=== PATIENT | male | born 1955 | race Caucasian/White ===

== ENCOUNTER 2017-03-05 12:22 | Inpatient (IN) | payer OTHER ==
[~2017-03-05] VITALS: Ht 177.8 cm; Wt 122.5 kg
--- NOTE | 2017-03-05 12:35 | Emergency Room Report ---
History of Present Illness General Chief Complaint: General Complaint Source: Patient (NANDO DOZIER D.O.) Present Illness HPI Patient presents from the paramedics [facility] home With complaints of urinary frequency Patient has multiple medical problems including hepatitis, HIV, reports that he feels that he was going to Cannot further elaborate however complains of increased cough Denies any chest pain denies any back or flank pain patient does report increased urination he also feels that he is incontinent however the incontinence appears to be stress related as he reports that when he coughs he has incontinence Patient was reported to have fever upon arrival here Otherwise denies any neck pain or photophobia Denies any recent travel, (NANDO DOZIER D.O.) Allergies: Coded Allergies: No Known Allergies (Unverified , 03/05/17) Patient History Past Medical History: see triage record Pertinent Family History: none Reviewed Nursing Documentation: PMH: Agreed, PSxH: Agreed (NANDO DOZIER D.O.) Nursing Documentation-PMH Past Medical History: No History, Except For Hx Hypertension: Yes Hx Diabetes: Yes Hx Gastrointestinal Problems: Yes - Hepatitis C History Of Psychiatric Problem: Yes - Bipolar (NANDO DOZIER D.O.) Review of Systems All Other Systems: negative except mentioned in HPI (NANDO DOZIER D.O.) Physical Exam Vital Signs Date Time Temp Pulse Resp B/P Pulse Ox O2 Delivery O2 Flow Rate FiO2 03/05/17 12:19 101.7 104 16 146/79 Sp02 EP Interpretation: reviewed - 99% on room air, normal General Appearance: no apparent distress Head: normocephalic, atraumatic Eyes: bilateral eye EOMI, bilateral eye PERRL ENT: hearing grossly normal, normal pharynx, TMs + canals normal, uvula midline Neck: full range of motion, supple, no meningismus, no bony tend Respiratory: no respiratory distress, no retraction, no accessory muscle use, crackles Cardiovascular #1: normal peripheral pulses, regular rate, rhythm, no edema, no gallop, no JVD, no murmur Gastrointestinal: normal bowel sounds, non tender, soft, no mass, no organomegaly, non-distended, no guarding, no hernia, no pulsatile mass, no rebound Genitourinary: no CVA tenderness Musculoskeletal: normal inspection Neurologic: responsive, prep cook III-XII nml as tested, motor strength/tone normal, sensory intact Psychiatric: mood/affect normal Skin: normal color, no rash, warm/dry, palpation normal Lymphatic: normal inspection, no adenopathy (NANOD DOZIER D.O.) Medical Decision Making Diagnostic Impression: Primary Impression: ACS (acute coronary syndrome) Additional Impressions: Sepsis UTI (urinary tract infection) ER Course Patient is a fairly complex patient with multiple differential to consideration including but not limited to cardiac cardiopulmonary and vascular emergencies Given the patient's febrile presentation sepsis is also entertained Patient's urine sample does show bacteria in patient initiated on antibiotics at this time requires further inpatient care Labs Test 03/05/17 12:40 03/05/17 13:20 White Blood Count 4.2 K/UL (4.8-10.8) Red Blood Count 4.82 M/UL (4.70-6.10) Hemoglobin 14.9 G/DL (14.2-18.0) Hematocrit 43.5 % (42.0-52.0) Mean Corpuscular Volume 90 FL (80-99) Mean Corpuscular Hemoglobin 30.9 PG (27.0-31.0) Mean Corpuscular Hemoglobin Concent 34.3 G/DL (32.0-36.0) Red Cell Distribution Width 12.2 % (11.6-14.8) Platelet Count 88 K/UL (150-450) Mean Platelet Volume 7.7 FL (6.5-10.1) Neutrophils (%) (Auto) % (45.0-75.0) Lymphocytes (%) (Auto) % (20.0-45.0) Monocytes (%) (Auto) % (1.0-10.0) Eosinophils (%) (Auto) % (0.0-3.0) Basophils (%) (Auto) % (0.0-2.0) Prothrombin Time 10.3 SEC (9.30-11.50) Prothromb Time International Ratio 1.0 (0.9-1.1) Activated Partial Thromboplast Time 25 SEC (23-33) Sodium Level 137 mEQ/L (135-145) Potassium Level 4.0 mEQ/L (3.4-4.9) Chloride Level 94 mEQ/L (98-107) Carbon Dioxide Level 26 mEQ/L (20-30) Anion Gap 17 (5-15) Blood Urea Nitrogen 17 mg/dL (7-23) Creatinine 1.0 mg/dL (0.7-1.2) Estimat Glomerular Filtration Rate > 60 mL/min (>60) Glucose Level 250 mg/dL (74-106) Lactic Acid Level 1.10 mmol/L (0.66-2.22) Calcium Level 9.6 mg/dL (8.6-10.2) Phosphorus Level 2.6 mg/dL (2.5-4.8) Magnesium Level 1.4 mg/dL (1.7-2.5) Total Bilirubin 0.5 mg/dL (0.0-1.2) Aspartate Amino Transf (AST/SGOT) 28 U/L (5-40) Alanine Aminotransferase (ALT/SGPT) 37 U/L (3-41) Alkaline Phosphatase 64 U/L (40-129) Total Creatine Kinase 74 U/L (38-174) Creatine Kinase MB < 1.5 ng/mL (< 6.7) Creatine Kinase MB Relative Index Troponin I < 0.30 ng/mL (<=0.30) Pro-B-Type Natriuretic Peptide 222 pg/mL (0-125) Total Protein 7.5 g/dL (6.6-8.7) Albumin 4.3 g/dL (3.5-5.2) Globulin 3.2 g/dL Albumin/Globulin Ratio 1.3 (1.0-2.7) Lipase 27 U/L (< 60) Urine Color Pale yellow Urine Appearance Cloudy Urine pH 5 (4.5-8.0) Urine Specific [place] 1.015 (1.005-1.035) Urine Protein 3+ (NEGATIVE) Urine Glucose (UA) 2+ (NEGATIVE) Urine Ketones Negative (NEGATIVE) Urine Occult Blood 4+ (NEGATIVE) Urine Nitrite Positive (NEGATIVE) Urine Bilirubin Negative (NEGATIVE) Urine Urobilinogen Normal MG/DL (0.0-1.0) Urine Leukocyte Esterase 2+ (NEGATIVE) Urine Opiates Screen Positive (NEGATIVE) Urine Barbiturates Screen Negative (NEGATIVE) Phencyclidine (PCP) Screen Negative (NEGATIVE) Urine Amphetamines Screen Positive (NEGATIVE) Urine Benzodiazepines Screen Negative (NEGATIVE) Urine Cocaine Screen Negative (NEGATIVE) Urine Marijuana (THC) Screen Negative (NEGATIVE) (NANDO DOZIER D.O.) ER Course Received signout from Dr Dozier to followup CT chest on this patient - No dissection. No PE although exam limited for PE ? dilated loop of bowel, however abd soft, NT/ND on serial exam. Passing gas/ stool. No vomiting. Low suspicion for SBO. Likely ileus - Admission office insurance stated [facility] and I was given Dr Cabrera as assigned hospitalist per [employer]. However, Dr Cabrera stated he does not admit [facility]. I went back to admissions office and they stated patient should be admitted to Panel. - I endorsed to Dr Prince and SHIVANI Gonzalez at 319pm for tele admission. (ERICA GARZA M.D.) Rhythm Strip Diag. Results EP Interpretation: yes Rate: 98 Rhythm: NSR, no PVC's, no ectopy (NANDO DOZIER D.O.) EP Interpretation: yes Rate: 82 Rhythm: NSR, no PVC's, no ectopy (ERICA GARZA M.D.) Chest X-Ray Diagnostic Results EP Interpretation: Yes Findings: no consolidation, no effusion, no pneumothorax, other - Questionably widened mediastinum Number of Views: 1 (NANDO DOZIER D.O.) EP Interpretation: Yes Findings: no consolidation, no effusion, no pneumothorax, no acute cardiopulmonary disease, other - ?widened mediastinum Number of Views: 1 (ERICA GARZA M.D.) Last Vital Signs Date Time Temp Pulse Resp B/P Pulse Ox O2 Delivery O2 Flow Rate FiO2 03/05/17 12:19 101.7 104 16 146/79 Status: improved (NANDO DOZIER D.O.) Status: improved (ERICA GARZA M.D.) Disposition: ADMITTED INPATIENT Condition: Serious NANDO DOZIER D.O. Mar 05, 2017 12:35 ERICA GARZA M.D. Mar 05, 2017 15:19
[2017-03-05] MEDS ORDERED: TRAZODONE HCL150 MG ORAL (12:53)
[2017-03-05] MEDS ORDERED: METOPROLOL SUCC25 MG ORAL (12:53)
[2017-03-05] MEDS ORDERED: GABAPENTIN100 MG ORAL (12:53)
[2017-03-05] MEDS ORDERED: OXYTROL1 EACH TD (12:53)
[2017-03-05] MEDS ORDERED: HYDROCHLOROTH12.5 M2 ORAL (12:53)
[2017-03-05 13:02] VITALS: BP 146/79
[2017-03-05] MEDS ORDERED: Acetaminophen 500mg (ES) tab ORAL ONE ×2 (13:12→13:15)
[2017-03-05 13:17] LABS: MEAN CORPUSCULAR HEMOGLOBIN 30.9 PG (27.0-31.0); MEAN CORPUSCULAR HGB CONC 34.3 G/DL (32.0-36.0); MEAN CORPUSCULAR VOLUME 90 FL (80-99); MEAN PLATELET VOLUME 7.7 FL (6.5-10.1); PLATELET COUNT 88 K/UL (150-450); RED BLOOD COUNT 4.82 M/UL (4.70-6.10); RED CELL DISTRIBUTION WIDTH 12.2 % (11.6-14.8); WHITE BLOOD COUNT 4.2 K/UL (4.8-10.8)
[2017-03-05 13:31] LABS: ALANINE AMINOTRANSFERASE 37 U/L (3-41); ALBUMIN/GLOBULIN RATIO 1.3 (1.0-2.7); ANION GAP 17 (5-15); ASPARTATE AMINO TRANSFERASE 28 U/L (5-40); CALCIUM 9.6 mg/dL (8.6-10.2); CARBON DIOXIDE 26 mEQ/L (20-30); CHLORIDE 94 mEQ/L (98-107); GLOMERULAR FILTRATION RATE > 60 mL/min (>60); HEMOLYSIS 4; LIPASE 27 U/L (< 60); MAGNESIUM 1.4 mg/dL (1.7-2.5); PHOSPHORUS 2.6 mg/dL (2.5-4.8); SODIUM 137 mEQ/L (135-145); TOTAL PROTEIN 7.5 g/dL (6.6-8.7); TROPONIN I < 0.30 ng/mL (<=0.30)
[2017-03-05 13:32] LABS: PROTHROMBIN TIME 10.3 SEC (9.30-11.50)
[2017-03-05 13:42] LABS: CKMB < 1.5 ng/mL (< 6.7)
[2017-03-05 13:42] LABS: APPEARANCE,URINE CLOUDY; KETONES,URINE NEGATIVE (NEGATIVE); LEUKOCYTE ESTERASE ,URINE 2+ (NEGATIVE); NITRITE,URINE POSITIVE (NEGATIVE); PH,URINE 5 (4.5-8.0); PROTEIN,URINE 3+ (NEGATIVE); UROBILINOGEN,URINE NORMAL MG/DL (0.0-1.0)
[2017-03-05] MEDS ORDERED: Promethazine/Codeine 5ml UD ORAL ONE (13:45)
[2017-03-05] MEDS ORDERED: cefTRIAXone 1 GM in NS 55 ML IVPB ONE (14:00)
[2017-03-05 14:10] LABS: BAND NEUTROPHILS % (MANUAL) 4 % (0-8); BASOPHILS % (MANUAL) 1 % (0-2); EOSINOPHILS % (MANUAL) 2 % (0-3); LYMPHOCYTES % (MANUAL) 7 % (20-45); NEUTROPHILS % (MANUAL) 80 % (45-75); PLATELET ESTIMATE DECREASED; PLATELET MORPHOLOGY NORMAL; TOTAL CELLS COUNTED 100
[2017-03-05 14:13] LABS: BACTERIA,URINE MANY /HPF; RBC,URINE 40-60 /HPF (0 - 0); SQUAMOUS EPITHELIAL CELL,UR OCCASIONAL /LPF (NONE/OCC); WBC,URINE 15-20 /HPF (0 - 0)
[2017-03-05 15:02] VITALS: BP 143/70
--- NOTE | 2017-03-05 15:16 | Diagnostic Imaging Report ---
Clinical Indication:PAIN Technique: IV administration nonionic contrast. Arterial phase spiral acquisition obtained through the chest, abdomen and pelvis. Multiplanar and 3-D reconstructions were generated. Total dose length product 1502 mGycm. CTDIvol(s) 8, 73, 22 mGy Comparison: None Findings: Chest: Respiratory motion artifact limits evaluation No evidence of thoracic aortic aneurysm or dissection. There is last branching anatomy of the great neck vessels. Exam was not protocoled for exclusion of pulmonary embolus. However, pulmonary arteries are fairly well opacified and there is no gross evidence of central pulmonary embolus. Evaluation of the peripheral vessels is limited by motion artifact Evaluation of the lungs is limited by motion artifact. Atelectatic bands are seen at the lung bases. No definite acute infiltrates, effusions, or congestion. No gross masses or nodules. The heart is mildly enlarged. No pericardial effusion demonstrated. No mediastinal or hilar mass or adenopathy. There is evidence of bilateral gynecomastia. No axillary or chest wall mass or adenopathy. There is a small fat-containing Bochdalek hernia on the left Abdomen pelvis: No evidence of abdominal aortic aneurysm or dissection. Widely patent nonstenotic celiac axis and proximal branches, superior mesenteric artery and proximal branches, bilateral single renal arteries, inferior mesenteric artery, bilateral common and external iliac arteries. The liver, gallbladder, bile ducts, pancreas, adrenals limited evaluation of the chest, due to respiratory motion artifact, left kidney are unremarkable. The spleen is enlarged, measuring 15 cm long axis dimension. The right kidney demonstrates a 1 cm cyst No retroperitoneal or mesenteric mass or adenopathy. No pelvic mass or adenopathy. The uterus is nondistended. The prostate is normal in size for age, contains calcifications. The appendix contains one or more appendicoliths, is otherwise normal. There is distal colonic diverticulosis. There is mild distention of proximal small bowel loops. A tapered transition to normal caliber is seen in the right lower quadrant, but no obstructing lesion is evident. No free or loculated intraperitoneal air or fluid. The bones demonstrate an ununited but not acute fracture of the left fifth rib. There are degenerative changes of the spine. Impression: No evidence of aortic aneurysm or dissection or other vascular pathology Mildly dilated proximal small bowel, with gradual transition in the right lower quadrant. Suspect on the basis of mild ileus, small bowel obstruction not completely excludable No acute process otherwise Cardiomegaly Splenomegaly Diverticulosis. No evidence of diverticulitis Other findings as noted, including ununited but old left fifth rib fracture, degenerative spondylosis, 1 cm right renal cyst, small left fat-containing Bochdalek hernia The CT scanner at [facility] is accredited by the [employer] and the scans are performed using protocols designed to limit radiation exposure to as low as reasonably achievable to attain images of sufficient resolution adequate for diagnostic evaluation.
--- NOTE | 2017-03-05 15:18 | Diagnostic Imaging Report ---
Indication: SOB Technique: One view of the chest Comparison: none Findings: The heart is enlarged. Lungs and pleural spaces are clear. There is an old distracted ununited fracture of the right clavicle. Impression: No acute process Cardiomegaly Old ununited right clavicular fracture
[2017-03-05 16:00] VITALS: BP 133/68
[2017-03-05 19:00] VITALS: BP 201/93
[2017-03-05] MEDS ORDERED: LORazepam Inj 2mg/ml 1ml IV PRN (19:30)
[2017-03-05] MEDS: Heparin 5000 units/ml inj SUBQ SCH (21:00)
--- NOTE | 2017-03-05 21:36 | History and Physical ---
MILADIS ROMERO 03/05/172135: History of Present Illness General Reason for Hospitalization: Urinary Frequency Present Illness HPI Patient is a 61 yr old male resident of a detention home with PMHx of hepatitis, HIV, reports that he feels that he was going to , also complains of urinary frequency and cough. Denies any chest pain denies any back or flank pain patient does report increased urination he also feels that he is incontinent however the incontinence appears to be stress related as he reports that when he coughs he has incontinence. Patient was reported to have fever upon arrival. Otherwise denies any neck pain or photophobia. Denies any recent travel, Allergies: Coded Allergies: No Known Allergies (Unverified , 03/05/17) Medication History Scheduled Gabapentin* (Gabapentin*), Unknown Dose ORAL THREE TIMES A DAY, (Reported) Hydrochlorothiazide* (Hydrochlorothiazide*), Unknown Dose ORAL DAILY, (Reported) Metoprolol Succinate* (Metoprolol Succinate*), Unknown Dose ORAL DAILY, ( Reported) Trazodone* (Trazodone*), 150 MG ORAL BEDTIME, (Reported) Miscellaneous Medications Oxybutynin (Oxytrol), 1 EACH TD, (Reported) Patient History History Provided By: Patient Healthcare decision maker Resuscitation status Advanced Directive on File Past Medical/Surgical History Past Medical/Surgical History: (1) Hepatitis (2) HIV (human immunodeficiency virus infection) (3) Polysubstance abuse Social History Social History: (1) Polysubstance abuse Physical Exam Last 24 Hour Vital Signs Date Time Temp Pulse Resp B/P Pulse Ox O2 Delivery O2 Flow Rate FiO2 03/05/17 19:00 98.1 100 20 201/93 90 Room Air 03/05/17 16:02 100.0 77 12 143/70 92 Room Air 03/05/17 16:00 90 03/05/17 16:00 98.4 92 20 133/68 93 Room Air 03/05/17 15:02 100.0 77 12 143/70 92 Room Air 03/05/17 14:30 100.0 03/05/17 13:02 101.7 16 146/79 03/05/17 12:19 101.7 104 16 146/79 Laboratory Tests Test 03/05/17 12:40 03/05/17 13:20 White Blood Count 4.2 K/UL (4.8-10.8) L Red Blood Count 4.82 M/UL (4.70-6.10) Hemoglobin 14.9 G/DL (14.2-18.0) Hematocrit 43.5 % (42.0-52.0) Mean Corpuscular Volume 90 FL (80-99) Mean Corpuscular Hemoglobin 30.9 PG (27.0-31.0) Mean Corpuscular Hemoglobin Concent 34.3 G/DL (32.0-36.0) Red Cell Distribution Width 12.2 % (11.6-14.8) Platelet Count 88 K/UL (150-450) L Mean Platelet Volume 7.7 FL (6.5-10.1) Neutrophils (%) (Auto) % (45.0-75.0) Lymphocytes (%) (Auto) % (20.0-45.0) Monocytes (%) (Auto) % (1.0-10.0) Eosinophils (%) (Auto) % (0.0-3.0) Basophils (%) (Auto) % (0.0-2.0) Differential Total Cells Counted 100 Neutrophils % (Manual) 80 % (45-75) H Lymphocytes % (Manual) 7 % (20-45) L Monocytes % (Manual) 6 % (1-10) Eosinophils % (Manual) 2 % (0-3) Basophils % (Manual) 1 % (0-2) Band Neutrophils 4 % (0-8) Platelet Estimate Decreased L Platelet Morphology Normal Red Blood Cell Morphology Normal Prothrombin Time 10.3 SEC (9.30-11.50) Prothromb Time International Ratio 1.0 (0.9-1.1) Activated Partial Thromboplast Time 25 SEC (23-33) Sodium Level 137 mEQ/L (135-145) Potassium Level 4.0 mEQ/L (3.4-4.9) Chloride Level 94 mEQ/L (98-107) L Carbon Dioxide Level 26 mEQ/L (20-30) Anion Gap 17 (5-15) H Blood Urea Nitrogen 17 mg/dL (7-23) Creatinine 1.0 mg/dL (0.7-1.2) Estimat Glomerular Filtration Rate > 60 mL/min (>60) Glucose Level 250 mg/dL (74-106) H Lactic Acid Level 1.10 mmol/L (0.66-2.22) Calcium Level 9.6 mg/dL (8.6-10.2) Phosphorus Level 2.6 mg/dL (2.5-4.8) Magnesium Level 1.4 mg/dL (1.7-2.5) L Total Bilirubin 0.5 mg/dL (0.0-1.2) Aspartate Amino Transf (AST/SGOT) 28 U/L (5-40) Alanine Aminotransferase (ALT/SGPT) 37 U/L (3-41) Alkaline Phosphatase 64 U/L (40-129) Total Creatine Kinase 74 U/L (38-174) Creatine Kinase MB < 1.5 ng/mL (< 6.7) Creatine Kinase MB Relative Index Troponin I < 0.30 ng/mL (<=0.30) Pro-B-Type Natriuretic Peptide 222 pg/mL (0-125) H Total Protein 7.5 g/dL (6.6-8.7) Albumin 4.3 g/dL (3.5-5.2) Globulin 3.2 g/dL Albumin/Globulin Ratio 1.3 (1.0-2.7) Lipase 27 U/L (< 60) Urine Color Pale yellow Urine Appearance Cloudy Urine pH 5 (4.5-8.0) Urine Specific [place] 1.015 (1.005-1.035) Urine Protein 3+ (NEGATIVE) H Urine Glucose (UA) 2+ (NEGATIVE) H Urine Ketones Negative (NEGATIVE) Urine Occult Blood 4+ (NEGATIVE) H Urine Nitrite Positive (NEGATIVE) H Urine Bilirubin Negative (NEGATIVE) Urine Urobilinogen Normal MG/DL (0.0-1.0) Urine Leukocyte Esterase 2+ (NEGATIVE) H Urine RBC 40-60 /HPF (0 - 0) H Urine WBC 15-20 /HPF (0 - 0) H Urine Squamous Epithelial Cells Occasional /LPF Urine Bacteria Many /HPF (NONE) H Urine Opiates Screen Positive (NEGATIVE) H Urine Barbiturates Screen Negative (NEGATIVE) Phencyclidine (PCP) Screen Negative (NEGATIVE) Urine Amphetamines Screen Positive (NEGATIVE) H Urine Benzodiazepines Screen Negative (NEGATIVE) Urine Cocaine Screen Negative (NEGATIVE) Urine Marijuana (THC) Screen Negative (NEGATIVE) Height (Feet): 5 Height (Inches): 10.00 Weight (Pounds): 270 Medications Current Medications Medications (Trade) Dose Ordered Sig/Javier Route PRN Reason Start Time Stop Time Status Last Admin Dose Admin Acetaminophen (Tylenol) 650 mg Q4H PRN ORAL fever 03/05/17 19:30 04/04/17 19:29 Ceftriaxone Sodium/Sodium Chloride (Rocephin/Sodium Chloride) 55 ml @ 110 mls/hr Q24H IVPB 03/06/17 14:00 03/13/17 13:59 Dextrose (Dextrose 50%) STAT PRN IV Hypoglycemia 03/05/17 19:30 04/04/17 19:29 Gabapentin (Neurontin) 100 mg THREE TIMES A DAY ORAL 03/06/17 09:00 04/05/17 08:59 Heparin Sodium (Porcine) (Heparin 5000 units/ml) 5,000 units Q12HR SUBQ 03/05/17 21:00 04/04/17 20:59 UNV Hydrochlorothiazide (Hydrodiuril) 12.5 mg DAILY ORAL 03/06/17 09:00 04/05/17 08:59 Ibuprofen (Motrin) 600 mg Q8H PRN ORAL For Pain 03/05/17 19:30 04/04/17 19:29 Insulin Aspart (NovoLOG) BEFORE MEALS AND HS SUBQ 03/05/17 21:00 04/04/17 20:59 Lorazepam 1 mg 1 mg Q4H PRN IV Agitation 03/05/17 19:30 03/12/17 19:29 Metoprolol Succinate (Toprol XL) 25 mg DAILY ORAL 03/06/17 09:00 04/05/17 08:59 Trazodone HCl (Desyrel) 150 mg BEDTIME ORAL 03/05/17 21:00 04/04/17 20:59 Assessment/Plan Problem List: (1) Sepsis ICD Codes: A41.9 - Sepsis, unspecified organism SNOMED: 28229342 (2) UTI (urinary tract infection) ICD Codes: N39.0 - Urinary tract infection, site not specified SNOMED: 29539340 (3) HIV (human immunodeficiency virus infection) ICD Codes: Z21 - Asymptomatic human immunodeficiency virus [HIV] infection status SNOMED: 55559508 (4) Hepatitis ICD Codes: K75.9 - Inflammatory liver disease, unspecified SNOMED: 906977962 (5) Polysubstance abuse ICD Codes: F19.10 - Other psychoactive substance abuse, uncomplicated SNOMED: 128100422 (6) Thrombocytopenia ICD Codes: D69.6 - Thrombocytopenia, unspecified SNOMED: 655545669 Assessment/Plan Monitor neuro status ID consult Monitor radha Rai Mag Monitor counts Aggie Elias N.P. 03/06/17 1443: History of Present Illness General Reason for Hospitalization: Urinary Frequency Present Illness HPI 61 yr old male with a PMHx of polysubstance abuse, schizophrenia, bipolar, sees a psychiatrist monthly, presented to the ED with complaints of urinary frequency , worsening cough and feels that he was going to . Denies any chest pain denies any back or flank pain patient does report increased urination he also feels that he is incontinent however the incontinence appears to be stress related as he reports that when he coughs he has incontinence. Patient was reported to have fever upon arrival to the ED, otherwise denies any neck pain or photophobia Allergies: Coded Allergies: No Known Allergies (Unverified , 03/05/17) Medication History Scheduled Gabapentin* (Gabapentin*), Unknown Dose ORAL THREE TIMES A DAY, (Reported) Hydrochlorothiazide* (Hydrochlorothiazide*), Unknown Dose ORAL DAILY, (Reported) Metoprolol Succinate* (Metoprolol Succinate*), Unknown Dose ORAL DAILY, ( Reported) Trazodone* (Trazodone*), 150 MG ORAL BEDTIME, (Reported) Miscellaneous Medications Oxybutynin (Oxytrol), 1 EACH TD, (Reported) Past Medical/Surgical History Past Medical/Surgical History: (1) Polysubstance abuse (2) Psychiatric disorder (3) Morbid obesity (4) ACS (acute coronary syndrome) (5) Hepatitis Social History Social History: (1) History of polydrug abuse Review of Systems Constitutional: Reports: fever, weakness Eye: Denies: acuity changes, blurred vision, discharge, double vision, eye pain , no symptoms, nose congestion, nose pain, other, see HPI, tearing ENT: Denies: ear discharge, ear pain, hearing loss, mouth pain, nasal discharge , no symptoms, nose congestion, nose pain, other, see HPI, throat pain, throat swelling Respiratory: Reports: cough Cardiovascular: Denies: PND, chest pain, edema, no symptoms, other, palpitations, see HPI, syncope Gastrointestinal: Denies: abdominal pain, constipation, diarrhea, hematemesis, melena, nausea, no symptoms, other, see HPI, vomiting Genitourinary: Reports: frequency Musculoskeletal: Reports: muscle pain Skin: Denies: change in color, change in hair/nails, dryness, lesions, no symptoms, other, rash, see HPI Psychiatric: Denies: HI, SI, anxiety, depressed feelings, emotional problems, hallucinations, no symptoms, other, prior hx, see HPI Neurological: Denies: dizziness, focal weakness, headache, no symptoms, numbness, other, paresthesia, see HPI, seizure, syncope, tingling, tremors Endocrine: Denies: excessive sweating, flushing, increased thirst, increased urine, intolerance to temperature, no symptoms, other, see HPI, unexplained weight loss Hematologic/Lymphatic: Denies: anemia, blood clots, diathesis, easy bleeding, easy bruising, no symptoms, other, see HPI, swollen glands Physical Exam General Appearance: alert Lines, tubes and drains: peripheral HEENT: normocephalic, atraumatic Neck: normal alignment, supple, normal inspection Respiratory/Chest: normal breath sounds, no respiratory distress Cardiovascular/Chest: normal rate, regular rhythm, no JVD Abdomen: distended, other - obese Extremities: non-tender, normal inspection Skin Exam: normal pigmentation, warm/dry Neurologic: alert, oriented x 3, responsive, normal mood/affect Objective Narrative Procedure: XRAY Chest 1v Indication: SOB Technique: One view of the chest Comparison: none Findings: The heart is enlarged. Lungs and pleural spaces are clear. There is an old distracted ununited fracture of the right clavicle. Impression: No acute process Cardiomegaly Old ununited right clavicular fracture CT abd/pelvis Impression: No evidence of aortic aneurysm or dissection or other vascular pathology Mildly dilated proximal small bowel, with gradual transition in the right lower quadrant. Suspect on the basis of mild ileus, small bowel obstruction not completely excludable No acute process otherwise Cardiomegaly Splenomegaly Diverticulosis. No evidence of diverticulitis Other findings as noted, including ununited but old left fifth rib fracture, degenerative spondylosis, 1 cm right renal cyst, small left fat-containing Bochdalek hernia Assessment/Plan Problem List: (1) Hepatitis ICD Codes: K75.9 - Inflammatory liver disease, unspecified SNOMED: 460806954 (2) HIV (human immunodeficiency virus infection) ICD Codes: Z21 - Asymptomatic human immunodeficiency virus [HIV] infection status SNOMED: 56107456 (3) Thrombocytopenia ICD Codes: D69.6 - Thrombocytopenia, unspecified SNOMED: 484200944 (4) Sepsis ICD Codes: A41.9 - Sepsis, unspecified organism SNOMED: 97999870 (5) UTI (urinary tract infection) ICD Codes: N39.0 - Urinary tract infection, site not specified SNOMED: 13838273 (6) History of polydrug abuse ICD Codes: Z87.898 - Personal history of other specified conditions SNOMED: 320573579 (7) Fever ICD Codes: R50.9 - Fever, unspecified SNOMED: 758349702 (8) Psychiatric disorder ICD Codes: F99 - Mental disorder, not otherwise specified SNOMED: 36821648, 536034317 Status: MILADIS Leija Mar 05, 2017 21:36 Aggie Elias N.P. Mar 06, 2017 14:43
[2017-03-05] MEDS: TraZODone 50mg tab ORAL SCH (22:16)
[2017-03-05] MEDS: NovoLOG Insulin Flexpen SUBQ SCH (22:18)
[2017-03-06] VITALS: BP 153/79
[2017-03-06 04:00] VITALS: BP 134/81
[2017-03-06] MEDS: NovoLOG Insulin Flexpen SUBQ SCH ×4 (06:43→21:11)
[2017-03-06 07:36] LABS: MEAN CORPUSCULAR HEMOGLOBIN 30.9 PG (27.0-31.0); MEAN CORPUSCULAR HGB CONC 33.9 G/DL (32.0-36.0); MEAN CORPUSCULAR VOLUME 91 FL (80-99); MEAN PLATELET VOLUME 7.4 FL (6.5-10.1); PLATELET COUNT 85 K/UL (150-450); RED BLOOD COUNT 4.48 M/UL (4.70-6.10); RED CELL DISTRIBUTION WIDTH 12.1 % (11.6-14.8); WHITE BLOOD COUNT 4.2 K/UL (4.8-10.8)
[2017-03-06 07:54] VITALS: BP 135/80
[2017-03-06 08:06] LABS: ANION GAP 14 (5-15); CALCIUM 8.9 mg/dL (8.6-10.2); CARBON DIOXIDE 26 mEQ/L (20-30); CHLORIDE 94 mEQ/L (98-107); GLOMERULAR FILTRATION RATE > 60 mL/min (>60); HEMOLYSIS 7; POTASSIUM 3.8 mEQ/L (3.4-4.9); SODIUM 134 mEQ/L (135-145)
[2017-03-06] MEDS: Heparin 5000 units/ml inj SUBQ SCH (09:00)
[2017-03-06 09:31] LABS: BAND NEUTROPHILS % (MANUAL) 0 % (0-8); BASOPHILS % (MANUAL) 0 % (0-2); EOSINOPHILS % (MANUAL) 0 % (0-3); LYMPHOCYTES % (MANUAL) 17 % (20-45); NEUTROPHILS % (MANUAL) 71 % (45-75); PLATELET ESTIMATE DECREASED; PLATELET MORPHOLOGY NORMAL; TOTAL CELLS COUNTED 100
[2017-03-06 12:05] VITALS: BP 111/50
[2017-03-06] MEDS: cefTRIAXone 1 GM in NS 55 ML IVPB SCH ×2 (12:57→13:07)
--- NOTE | 2017-03-06 14:33 | General Progress Note ---
Assessment/Plan Problem List: (1) Hepatitis ICD Codes: K75.9 - Inflammatory liver disease, unspecified SNOMED: 895022125 (2) HIV (human immunodeficiency virus infection) ICD Codes: Z21 - Asymptomatic human immunodeficiency virus [HIV] infection status SNOMED: 78516480 (3) Thrombocytopenia ICD Codes: D69.6 - Thrombocytopenia, unspecified SNOMED: 105213038 (4) UTI (urinary tract infection) ICD Codes: N39.0 - Urinary tract infection, site not specified SNOMED: 97050369 (5) Sepsis ICD Codes: A41.9 - Sepsis, unspecified organism SNOMED: 96713295 (6) ACS (acute coronary syndrome) ICD Codes: I24.9 - Acute ischemic heart disease, unspecified SNOMED: 922523434 (7) Psychiatric disorder ICD Codes: F99 - Mental disorder, not otherwise specified SNOMED: 98147374, 668670232 (8) Morbid obesity ICD Codes: E66.01 - Morbid (severe) obesity due to excess calories SNOMED: 295526847, 78358306496801 (9) Fever ICD Codes: R50.9 - Fever, unspecified SNOMED: 020642956 Assessment/Plan Monitor counts Continue abx ID consult - Dr Jackson Hematology consult - Dr Wells Monitor lytes - correct as needed Obtain list of psyche meds Monitor I&O Monitor temp Subjective Constitutional: Denies: chills, diaphoresis, fever, malaise, no symptoms, other , weakness HEENT: Denies: blurred vision, double vision, ear discharge, ear pain, eye pain , mouth pain, mouth swelling, no symptoms, nose congestion, nose pain, other, tearing, throat pain, throat swelling Cardiovascular: Denies: chest pain, edema, irregular heart rate, lightheadedness, no symptoms, other, palpitations, syncope Respiratory: Denies: SOB at rest, SOB with excertion, cough, no symptoms, orthopnea, other, shortness of breath, sputum, stridor, wheezing Gastrointestinal/Abdominal: Denies: abdomen distended, abdominal pain, black stools, blood in stool, constipated, diarrhea, difficulty swallowing, nausea, no symptoms, other, poor appetite, poor fluid intake, rectal bleeding, tarry stools, vomiting Genitourinary: Denies: burning, discharge, flank pain, frequency, hematuria, incontinence, no symptoms, other, pain, urgency Neurologic/Psychiatric: Denies: anxiety, depressed, emotional problems, headache, no symptoms, numbness, other, paresthesia, pre-existing deficit, seizure, tingling, tremors, weakness Endocrine: Denies: excessive sweating, flushing, increased hunger, increased thirst, increased urine, intolerance to cold, intolerance to heat, no symptoms, other, unexplained weight gain, unexplained weight loss Hematologic/Lymphatic: Denies: anemia, easy bleeding, easy bruising, no symptoms, other Allergies: Coded Allergies: No Known Allergies (Unverified , 03/05/17) Subjective In bed, in no apparent distress, denies discomfort Objective Last 24 Hour Vital Signs Date Time Temp Pulse Resp B/P Pulse Ox O2 Delivery O2 Flow Rate FiO2 03/06/17 12:05 98.4 75 18 111/50 95 Room Air 03/06/17 08:25 90 135/80 03/06/17 07:54 99.7 90 20 135/80 94 Room Air 03/06/17 04:00 98.0 82 18 134/81 95 Room Air 03/06/17 04:00 89 03/06/17 00:00 98.4 91 24 153/79 94 Room Air 03/06/17 00:00 93 03/05/17 22:16 163/96 03/05/17 20:00 97 03/05/17 19:00 98.1 100 20 201/93 90 Room Air 03/05/17 16:02 100.0 77 12 143/70 92 Room Air 03/05/17 16:00 90 03/05/17 16:00 98.4 92 20 133/68 93 Room Air 03/05/17 15:02 100.0 77 12 143/70 92 Room Air 03/05/17 14:30 100.0 Intake and Output 03/05/17 03/06/17 19:00 07:00 Intake Total 200 ml Balance 200 ml IV Total 200 ml # Voids 1 6 Laboratory Tests 03/06/17 05:50: White Blood Count 4.2L, Red Blood Count 4.48L, Hemoglobin 13.8L, Hematocrit 40.8L, Mean Corpuscular Volume 91, Mean Corpuscular Hemoglobin 30.9, Mean Corpuscular Hemoglobin Concent 33.9, Red Cell Distribution Width 12.1, Platelet Count 85L, Mean Platelet Volume 7.4, Neutrophils (%) (Auto) , Lymphocytes (%) ( Auto) , Monocytes (%) (Auto) , Eosinophils (%) (Auto) , Basophils (%) (Auto) , Differential Total Cells Counted 100, Neutrophils % (Manual) 71, Lymphocytes % ( Manual) 17L, Monocytes % (Manual) 12H, Eosinophils % (Manual) 0, Basophils % ( Manual) 0, Band Neutrophils 0, Platelet Estimate DecreasedL, Platelet Morphology Normal, Red Blood Cell Morphology Normal, Sodium Level 134L, Potassium Level 3.8, Chloride Level 94L, Carbon Dioxide Level 26, Anion Gap 14, Blood Urea Nitrogen 18, Creatinine 1.0, Estimat Glomerular Filtration Rate > 60 , Glucose Level 245H, Calcium Level 8.9 Height (Feet): 5 Height (Inches): 10.00 Weight (Pounds): 270 General Appearance: no apparent distress, alert EENT: normal ENT inspection Neck: non-tender, normal alignment, supple, normal inspection Cardiovascular: normal rate, regular rhythm Respiratory/Chest: normal breath sounds, no respiratory distress Abdomen: soft, no organomegaly, no mass Pelvis: normal external exam Extremities: normal range of motion, non-tender, normal inspection, no calf tenderness Neurologic: alert, oriented x 3, responsive, normal mood/affect Skin: normal pigmentation, warm/dry Aggie Elias N.P. Mar 06, 2017 14:33
--- NOTE | 2017-03-06 14:40 | Infectious Diseases Prog Note ---
Assessment/Plan Problems: (1) Sepsis Assessment & Plan: await blood culture, and urine culture continue ceftriaxone (2) UTI (urinary tract infection) Assessment & Plan: due to gram negative rods, on ceftriaxon , await identification and sensitivity (3) Hepatitis Assessment & Plan: will screen for hepatitis , and confirm , recommend for treatment as an outpatient (4) Polysubstance abuse Assessment & Plan: recommend counseling and rehabilitation Subjective Allergies: Coded Allergies: No Known Allergies (Unverified , 03/05/17) Objective Vital Signs Last 24 Hour Vital Signs Date Time Temp Pulse Resp B/P Pulse Ox O2 Delivery O2 Flow Rate FiO2 03/06/17 12:05 98.4 75 18 111/50 95 Room Air 03/06/17 12:00 85 03/06/17 08:25 90 135/80 03/06/17 08:00 86 03/06/17 07:54 99.7 90 20 135/80 94 Room Air 03/06/17 04:00 98.0 82 18 134/81 95 Room Air 03/06/17 04:00 89 03/06/17 00:00 98.4 91 24 153/79 94 Room Air 03/06/17 00:00 93 03/05/17 22:16 163/96 03/05/17 20:00 97 03/05/17 19:00 98.1 100 20 201/93 90 Room Air 03/05/17 16:02 100.0 77 12 143/70 92 Room Air 03/05/17 16:00 90 03/05/17 16:00 98.4 92 20 133/68 93 Room Air 03/05/17 15:02 100.0 77 12 143/70 92 Room Air Height (Feet): 5 Height (Inches): 10.00 Weight (Pounds): 270 Microbiology Date/Time Source Procedure Growth Status 03/05/17 13:20 Urine,Clean Catch Urine Culture - Preliminary Gram Negative Ovidio Resulted Laboratory Tests Test 03/06/17 05:50 White Blood Count 4.2 K/UL (4.8-10.8) L Red Blood Count 4.48 M/UL (4.70-6.10) L Hemoglobin 13.8 G/DL (14.2-18.0) L Hematocrit 40.8 % (42.0-52.0) L Mean Corpuscular Volume 91 FL (80-99) Mean Corpuscular Hemoglobin 30.9 PG (27.0-31.0) Mean Corpuscular Hemoglobin Concent 33.9 G/DL (32.0-36.0) Red Cell Distribution Width 12.1 % (11.6-14.8) Platelet Count 85 K/UL (150-450) L Mean Platelet Volume 7.4 FL (6.5-10.1) Neutrophils (%) (Auto) % (45.0-75.0) Lymphocytes (%) (Auto) % (20.0-45.0) Monocytes (%) (Auto) % (1.0-10.0) Eosinophils (%) (Auto) % (0.0-3.0) Basophils (%) (Auto) % (0.0-2.0) Differential Total Cells Counted 100 Neutrophils % (Manual) 71 % (45-75) Lymphocytes % (Manual) 17 % (20-45) L Monocytes % (Manual) 12 % (1-10) H Eosinophils % (Manual) 0 % (0-3) Basophils % (Manual) 0 % (0-2) Band Neutrophils 0 % (0-8) Platelet Estimate Decreased L Platelet Morphology Normal Red Blood Cell Morphology Normal Sodium Level 134 mEQ/L (135-145) L Potassium Level 3.8 mEQ/L (3.4-4.9) Chloride Level 94 mEQ/L (98-107) L Carbon Dioxide Level 26 mEQ/L (20-30) Anion Gap 14 (5-15) Blood Urea Nitrogen 18 mg/dL (7-23) Creatinine 1.0 mg/dL (0.7-1.2) Estimat Glomerular Filtration Rate > 60 mL/min (>60) Glucose Level 245 mg/dL (74-106) H Calcium Level 8.9 mg/dL (8.6-10.2) Current Medications Medications (Trade) Dose Ordered Sig/Javier Route PRN Reason Start Time Stop Time Status Last Admin Dose Admin Acetaminophen (Tylenol) 650 mg Q4H PRN ORAL fever 03/05/17 19:30 04/04/17 19:29 Ceftriaxone Sodium/Sodium Chloride (Rocephin/Sodium Chloride) 55 ml @ 110 mls/hr Q24H IVPB 03/06/17 14:00 03/13/17 13:59 03/06/17 13:07 Clonidine HCl (Catapres) 0.1 mg Q6H PRN ORAL SBP > 160 03/05/17 21:45 04/04/17 21:44 03/05/17 22:16 Dextrose (Dextrose 50%) STAT PRN IV Hypoglycemia 03/05/17 19:30 04/04/17 19:29 Gabapentin (Neurontin) 100 mg THREE TIMES A DAY ORAL 03/06/17 09:00 04/05/17 08:59 03/06/17 12:52 Hydrochlorothiazide (Hydrodiuril) 12.5 mg DAILY ORAL 03/06/17 09:00 04/05/17 08:59 03/06/17 08:24 Ibuprofen (Motrin) 600 mg Q8H PRN ORAL For Pain 03/05/17 19:30 04/04/17 19:29 Insulin Aspart (NovoLOG) BEFORE MEALS AND HS SUBQ 03/05/17 21:00 04/04/17 20:59 03/06/17 12:53 Lorazepam 1 mg 1 mg Q4H PRN IV Agitation 03/05/17 19:30 03/12/17 19:29 Metoprolol Succinate (Toprol XL) 50 mg DAILY ORAL 03/06/17 09:00 04/05/17 08:59 03/06/17 08:25 Promethazine HCl/ Codeine (Phenergan with Codeine) 5 ml Q4H PRN ORAL For Cough 03/05/17 21:45 04/04/17 21:44 Trazodone HCl (Desyrel) 150 mg BEDTIME ORAL 03/05/17 21:00 04/04/17 20:59 03/05/17 22:16 Ernie Jackson M.D. Mar 06, 2017 14:40
[2017-03-06 16:00] VITALS: BP 128/73
[2017-03-06] MEDS ORDERED: Tubing IV Secondary IV ONE (16:12)
[2017-03-06] MEDS ORDERED: NS 275ml ONE (16:12)
[2017-03-06 20:00] VITALS: BP 128/72
[2017-03-06] MEDS: TraZODone 50mg tab ORAL SCH (21:07)
--- NOTE | 2017-03-06 21:38 | Consultation ---
DATE OF CONSULTATION: INFECTIOUS DISEASE CONSULTATION CONSULTING PHYSICIAN: Ernie Jackson M.D. REQUESTING PHYSICIAN: Giovanny Prince M.D. REASON FOR CONSULTATION: Urinary tract infection, recommendation for antibiotics therapy. HISTORY OF PRESENT ILLNESS: The patient is a 61-year-old male who was transferred from the [facility] due to urine retention and increased frequency. The patient had tight foreskin on his penis and he had difficulty urinating normally. He was evaluated a week ago at [facility] when he had urinary tract infection due to his skin problem and he was not accepted for surgical procedure due to insurance issue and he was discharged with follow up with his primary care physician. The patient had fever before he presented to the emergency room and he was febrile in the ED with temperature of 101.7. He was unable to urinate. The patient was sent to [facility] emergency room for further evaluation and management. He denied any suprapubic pain. No fever or chills, and no nausea or vomiting. No hematuria. No cough or shortness of breath. Urinalysis in the emergency room showed positive nitrites and leukocyte esterase suggestive of infection, so he was started on ceftriaxone and I was consulted by the primary provider for antibiotics recommendation. REVIEW OF SYSTEMS: A 12-point of system reviewed were all negative apart from the one I mentioned above in my History and Physical. PAST MEDICAL HISTORY: Significant for hypertension, diabetes, hepatitis C, and bipolar disorder. PAST SURGICAL HISTORY: Negative. FAMILY HISTORY: Negative for recurrent infection or immunocompromised condition. SOCIAL HISTORY: He lives in [facility]. Used drugs mainly methamphetamine. Unemployed. ALLERGIES: He has no known drug allergy. MEDICATIONS: He is on ceftriaxone. For the rest of his medications, please refer to MAR. PHYSICAL EXAMINATION: VITAL SIGNS: Temperature 98.4 degrees, pulse 75, respirations 18, blood pressure 111/50, and saturation 95% on room air. GENERAL: A middle-aged male, obese, lying in bed, awake, alert, not in distress. HEENT: Normocephalic and atraumatic. Pupils are reactive to light equally. Moist oral mucosa. No exudate. NECK: Supple. No lymphadenopathy. CARDIOVASCULAR: Regular rate and rhythm. No murmur or gallop. LUNGS: Clear bilaterally. No wheezing or rhonchi. Normal breathing effort. ABDOMEN: Soft, nontender, and nondistended. Positive bowel sounds. No hepatosplenomegaly. No ascites. EXTREMITIES: No edema or cyanosis. LABORATORY AND DIAGNOSTIC DATA: Labs showed a white count of 4.2, hemoglobin 13.8, and platelet count of 85,000. BUN of 18 and creatinine of 1. AST of 28, ALT of 37. Urinalysis showed positive nitrites, +2 leukocyte esterase, WBC 15 to 20, and many urine bacteria. Microbiology: Urine culture is growing Gram-negative rods. 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 CT angio, abdomen and chest and pelvis showed no evidence of aortic aneurysm or dissection or other vascular pathology, mildly dilated proximal small bowel with gradual transition in the right lower quadrant, small bowel obstruction not excluded, no acute process, otherwise cardiomegaly, splenomegaly, diverticulosis, no evidence of diverticulitis. ASSESSMENT AND PLAN: 1. Sepsis. Await blood culture and urine culture. Continue ceftriaxone, empiric treatment for now, suspect due to urinary tract infection. 2. Urinary tract infection with Gram-negative rods on ceftriaxone already. Await identification and sensitivity. 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 3. Hepatitis, chronic hepatitis C. We will screen for hepatitis and confirm. Recommend treatment as an outpatient with Gastroenterology. 4. Polysubstance abuse. Recommend counseling and rehabilitation. Ernie Jackson M.D. DR: MARY JOB#: [id number] CC:
[2017-03-06] MEDS: Promethazine/Codeine 5ml UD ORAL PRN (22:38)
[2017-03-07] VITALS: BP 130/74
[2017-03-07 04:00] VITALS: BP 118/69
[2017-03-07] MEDS: NovoLOG Insulin Flexpen SUBQ SCH ×4 (06:27→20:53)
[2017-03-07 07:36] LABS: ANION GAP 16 (5-15); CALCIUM 8.7 mg/dL (8.6-10.2); CARBON DIOXIDE 24 mEQ/L (20-30); CHLORIDE 94 mEQ/L (98-107); GLOMERULAR FILTRATION RATE > 60 mL/min (>60); HEMOLYSIS 10; POTASSIUM 3.8 mEQ/L (3.4-4.9); SODIUM 134 mEQ/L (135-145)
[2017-03-07 07:37] LABS: MEAN CORPUSCULAR HEMOGLOBIN 31.3 PG (27.0-31.0); MEAN CORPUSCULAR HGB CONC 34.4 G/DL (32.0-36.0); MEAN CORPUSCULAR VOLUME 91 FL (80-99); MEAN PLATELET VOLUME 8.4 FL (6.5-10.1); PLATELET COUNT 77 K/UL (150-450); RED BLOOD COUNT 4.69 M/UL (4.70-6.10); RED CELL DISTRIBUTION WIDTH 12.3 % (11.6-14.8); WHITE BLOOD COUNT 2.5 K/UL (4.8-10.8)
[2017-03-07 08:26] VITALS: BP 124/65
[2017-03-07 10:29] LABS: BAND NEUTROPHILS % (MANUAL) 0 % (0-8); BASOPHILS % (MANUAL) 0 % (0-2); EOSINOPHILS % (MANUAL) 1 % (0-3); LYMPHOCYTES % (MANUAL) 46 % (20-45); NEUTROPHILS % (MANUAL) 42 % (45-75); PLATELET ESTIMATE DECREASED; PLATELET MORPHOLOGY NORMAL; TOTAL CELLS COUNTED 100
[2017-03-07] MEDS: Promethazine/Codeine 5ml UD ORAL PRN (11:30)
[2017-03-07 11:50] VITALS: BP 130/75
[2017-03-07] MEDS: cefTRIAXone 1 GM in NS 55 ML IVPB SCH (14:26)
--- NOTE | 2017-03-07 15:46 | General Progress Note ---
Assessment/Plan Assessment/Plan ASSESSMENT: #. Leukopenia is likely related to patient's splenomegaly as well as history of hepatitis, continue to monitor. Also has sepsis at the moment #. Thrombocytopenia - related to his hep C as well as liver cirrhosis, will followup with Gi team/service #. Splenomegaly due to history of chronic hepatitis C, needs followup and rx #. Sepsis. on abx for suspected uti, being followed by ID team #. Urinary tract infection with Gram-negative rods on ceftriaxone #. Hepatitis, chronic hepatitis C. We will screen for hepatitis andconfirm. GI followup #. Polysubstance abuse. Recommend counseling and rehabilitation. RECS: - Monitor counts - Hepatitis panel is pending to confirm dx - Medications have been reviewed - Plt count has been >50k consistently - Consider transfusion only if hgb <7, plt <20k - Abx as per ID service, conside NEUPOGEN if ANC lower - Peripheral smear ordered and will be reviewed - Appreciate consultation!! Subjective Constitutional: Reports: no symptoms HEENT: Reports: no symptoms Cardiovascular: Reports: no symptoms Respiratory: Reports: no symptoms Gastrointestinal/Abdominal: Reports: poor appetite Genitourinary: Reports: no symptoms Neurologic/Psychiatric: Reports: no symptoms Endocrine: Reports: no symptoms Hematologic/Lymphatic: Reports: anemia Allergies: Coded Allergies: No Known Allergies (Unverified , 03/05/17) Subjective stable, no events overnight, h/h stable, plt count 70-100k Objective Last 24 Hour Vital Signs Date Time Temp Pulse Resp B/P Pulse Ox O2 Delivery O2 Flow Rate FiO2 03/07/17 12:00 70 03/07/17 11:50 97.9 68 18 130/75 95 Room Air 03/07/17 09:16 67 124/65 03/07/17 08:26 97.9 67 18 124/65 95 Room Air 03/07/17 08:00 67 03/07/17 04:00 67 03/07/17 04:00 98.1 69 18 118/69 95 Room Air 03/07/17 01:34 96.8 03/07/17 00:00 70 03/07/17 00:00 101.7 69 18 130/74 95 Room Air 03/06/17 20:00 98.0 74 20 128/72 96 Room Air 03/06/17 20:00 76 03/06/17 16:00 73 03/06/17 16:00 97.7 71 20 128/73 96 Room Air Intake and Output 03/06/17 03/07/17 19:00 07:00 Intake Total 240 ml 480 ml Balance 240 ml 480 ml Intake Oral 240 ml 480 ml # Voids 3 4 # Bowel Movements 1 Laboratory Tests 03/06/17 17:00: Hepatitis A Antibody Total [Pending], Hepatitis B Surface Antigen [Pending], Hepatitis B Surface Antibody [Pending], Hepatitis B Core IgM Antibody [Pending] , Hepatitis C Antibody [Pending] 03/07/17 05:15: White Blood Count 2.5L, Red Blood Count 4.69L, Hemoglobin 14.7, Hematocrit 42.7 , Mean Corpuscular Volume 91, Mean Corpuscular Hemoglobin 31.3H, Mean Corpuscular Hemoglobin Concent 34.4, Red Cell Distribution Width 12.3, Platelet Count 77L, Mean Platelet Volume 8.4, Neutrophils (%) (Auto) , Lymphocytes (%) ( Auto) , Monocytes (%) (Auto) , Eosinophils (%) (Auto) , Basophils (%) (Auto) , Differential Total Cells Counted 100, Neutrophils % (Manual) 42L, Lymphocytes % (Manual) 46H, Monocytes % (Manual) 11H, Eosinophils % (Manual) 1, Basophils % ( Manual) 0, Band Neutrophils 0, Platelet Estimate DecreasedL, Platelet Morphology Normal, Red Blood Cell Morphology Normal, Sodium Level 134L, Potassium Level 3.8, Chloride Level 94L, Carbon Dioxide Level 24, Anion Gap 16H , Blood Urea Nitrogen 21, Creatinine 1.0, Estimat Glomerular Filtration Rate > 60, Glucose Level 191H, Calcium Level 8.7 Height (Feet): 5 Height (Inches): 10.00 Weight (Pounds): 270 General Appearance: no apparent distress EENT: TMs normal Neck: supple Cardiovascular: regular rhythm Respiratory/Chest: normal breath sounds Abdomen: soft Extremities: non-tender Edema: 1+ Leg (L), 1+ Leg (R) Edema: mild edema Neurologic: alert Skin: warm/dry Jose Wells Mar 07, 2017 15:46
[2017-03-07 16:07] VITALS: BP 109/56
[2017-03-07] MEDS: Ertapenem 1 GM in NS 55 ML IVPB SCH (16:38)
--- NOTE | 2017-03-07 19:35 | General Progress Note ---
Assessment/Plan Problem List: (1) Hepatitis ICD Codes: K75.9 - Inflammatory liver disease, unspecified SNOMED: 928845623 (2) Thrombocytopenia ICD Codes: D69.6 - Thrombocytopenia, unspecified SNOMED: 011688786 (3) Sepsis ICD Codes: A41.9 - Sepsis, unspecified organism SNOMED: 14783540 (4) UTI (urinary tract infection) ICD Codes: N39.0 - Urinary tract infection, site not specified SNOMED: 35476191 (5) History of polydrug abuse ICD Codes: Z87.898 - Personal history of other specified conditions SNOMED: 562520928 (6) Fever ICD Codes: R50.9 - Fever, unspecified SNOMED: 703289443 (7) Psychiatric disorder ICD Codes: F99 - Mental disorder, not otherwise specified SNOMED: 43969414, 541395336 Status: doing well, stable Assessment/Plan Monitor counts Abx perID Hematology consult - Dr Wells Monitor lytes - correct as needed Obtain list of psyche meds Monitor I&O Monitor temp Subjective Constitutional: Denies: chills, diaphoresis, fever, malaise, no symptoms, other , weakness HEENT: Denies: blurred vision, double vision, ear discharge, ear pain, eye pain , mouth pain, mouth swelling, no symptoms, nose congestion, nose pain, other, tearing, throat pain, throat swelling Cardiovascular: Denies: chest pain, edema, irregular heart rate, lightheadedness, no symptoms, other, palpitations, syncope Respiratory: Denies: SOB at rest, SOB with excertion, cough, no symptoms, orthopnea, other, shortness of breath, sputum, stridor, wheezing Gastrointestinal/Abdominal: Denies: abdomen distended, abdominal pain, black stools, blood in stool, constipated, diarrhea, difficulty swallowing, nausea, no symptoms, other, poor appetite, poor fluid intake, rectal bleeding, tarry stools, vomiting Genitourinary: Denies: burning, discharge, flank pain, frequency, hematuria, incontinence, no symptoms, other, pain, urgency Neurologic/Psychiatric: Denies: anxiety, depressed, emotional problems, headache, no symptoms, numbness, other, paresthesia, pre-existing deficit, seizure, tingling, tremors, weakness Endocrine: Denies: excessive sweating, flushing, increased hunger, increased thirst, increased urine, intolerance to cold, intolerance to heat, no symptoms, other, unexplained weight gain, unexplained weight loss Hematologic/Lymphatic: Denies: anemia, easy bleeding, easy bruising, no symptoms, other Allergies: Coded Allergies: No Known Allergies (Unverified , 03/05/17) Subjective In bed, in no apparent distress, denies discomfort Objective Last 24 Hour Vital Signs Date Time Temp Pulse Resp B/P Pulse Ox O2 Delivery O2 Flow Rate FiO2 03/07/17 16:07 97.7 67 18 109/56 95 Room Air 03/07/17 16:00 76 03/07/17 12:00 70 03/07/17 11:50 97.9 68 18 130/75 95 Room Air 03/07/17 09:16 67 124/65 03/07/17 08:26 97.9 67 18 124/65 95 Room Air 03/07/17 08:00 67 03/07/17 04:00 67 03/07/17 04:00 98.1 69 18 118/69 95 Room Air 03/07/17 01:34 96.8 03/07/17 00:00 70 03/07/17 00:00 101.7 69 18 130/74 95 Room Air 03/06/17 20:00 98.0 74 20 128/72 96 Room Air 03/06/17 20:00 76 Intake and Output 03/06/17 03/07/17 19:00 07:00 Intake Total 240 ml 480 ml Balance 240 ml 480 ml Intake Oral 240 ml 480 ml # Voids 3 4 # Bowel Movements 1 Laboratory Tests 03/07/17 05:15: White Blood Count 2.5L, Red Blood Count 4.69L, Hemoglobin 14.7, Hematocrit 42.7 , Mean Corpuscular Volume 91, Mean Corpuscular Hemoglobin 31.3H, Mean Corpuscular Hemoglobin Concent 34.4, Red Cell Distribution Width 12.3, Platelet Count 77L, Mean Platelet Volume 8.4, Neutrophils (%) (Auto) , Lymphocytes (%) ( Auto) , Monocytes (%) (Auto) , Eosinophils (%) (Auto) , Basophils (%) (Auto) , Differential Total Cells Counted 100, Neutrophils % (Manual) 42L, Lymphocytes % (Manual) 46H, Monocytes % (Manual) 11H, Eosinophils % (Manual) 1, Basophils % ( Manual) 0, Band Neutrophils 0, Platelet Estimate DecreasedL, Platelet Morphology Normal, Red Blood Cell Morphology Normal, Sodium Level 134L, Potassium Level 3.8, Chloride Level 94L, Carbon Dioxide Level 24, Anion Gap 16H , Blood Urea Nitrogen 21, Creatinine 1.0, Estimat Glomerular Filtration Rate > 60, Glucose Level 191H, Calcium Level 8.7 Height (Feet): 5 Height (Inches): 10.00 Weight (Pounds): 270 General Appearance: no apparent distress, alert EENT: PERRL/EOMI, normal ENT inspection Neck: normal alignment, supple Cardiovascular: normal rate, regular rhythm, no JVD Respiratory/Chest: normal breath sounds, no respiratory distress Abdomen: non tender, soft, no organomegaly Extremities: normal range of motion, non-tender Neurologic: alert, oriented x 3, responsive, normal mood/affect Skin: warm/dry Aggie Elias N.P. Mar 07, 2017 19:35
[2017-03-07 20:00] VITALS: BP 94/53
[2017-03-07] MEDS: TraZODone 50mg tab ORAL SCH (20:51)
--- NOTE | 2017-03-07 22:05 | Infectious Diseases Prog Note ---
Assessment/Plan Problems: (1) Sepsis Assessment & Plan: await blood culture, and urine culture continue ceftriaxone (2) UTI (urinary tract infection) Assessment & Plan: due to ESBL + E coli , on ceftriaxon , will switch to ertapenem and treat for 7 days (3) Hepatitis Assessment & Plan: will screen for hepatitis , and confirm , recommend for treatment as an outpatient (4) Polysubstance abuse Assessment & Plan: recommend counseling and rehabilitation Subjective Constitutional: Denies: anorexia, chills, drenching sweats, fatigue, fever, no symptoms, other HEENT: Denies: congestion, coryza, dysphagia, hearing change, no symptoms, other, visual change Respiratory: Denies: dry cough, no symptoms, other, productive cough, shortness of breath Breasts: Denies: discharge, no symptoms, other, swelling, tenderness Cardiovascular: Denies: chest pain, dyspnea on exertion, no symptoms, other, palpitations Gastrointestinal/Abdominal: Denies: bloating, blood in stool, constipation, diarrhea, nausea, no symptoms, other, vomiting Psychiatric: Denies: anxiety, depression, no symptoms, other Allergies: Coded Allergies: No Known Allergies (Unverified , 03/05/17) Objective Vital Signs Last 24 Hour Vital Signs Date Time Temp Pulse Resp B/P Pulse Ox O2 Delivery O2 Flow Rate FiO2 03/07/17 20:00 99.3 76 18 94/53 94 Room Air 03/07/17 16:07 97.7 67 18 109/56 95 Room Air 03/07/17 16:00 76 03/07/17 12:00 70 03/07/17 11:50 97.9 68 18 130/75 95 Room Air 03/07/17 09:16 67 124/65 03/07/17 08:26 97.9 67 18 124/65 95 Room Air 03/07/17 08:00 67 03/07/17 04:00 67 03/07/17 04:00 98.1 69 18 118/69 95 Room Air 03/07/17 01:34 96.8 03/07/17 00:00 70 03/07/17 00:00 101.7 69 18 130/74 95 Room Air Height (Feet): 5 Height (Inches): 10.00 Weight (Pounds): 270 General Appearance: WD/WN, no acute distress HEENT: normocephalic, atraumatic, anicteric, mucous membranes moist, PERRL Respiratory/Chest: chest wall non-tender, lungs clear, normal breath sounds, no respiratory distress, no accessory muscle use Cardiovascular: normal peripheral pulses, normal rate, regular rhythm, no gallop/murmur, no JVD Abdomen: normal bowel sounds, soft, non tender, no organomegaly, non distended , no mass Extremities: no cyanosis, no clubbing Skin: no rash, no lesions Microbiology Date/Time Source Procedure Growth Status 03/05/17 12:52 Blood Blood Culture - Preliminary NO GROWTH AFTER 24 HOURS Resulted 03/05/17 12:48 Blood Blood Culture - Preliminary NO GROWTH AFTER 24 HOURS Resulted 03/05/17 15:15 Nasal Nares MRSA Culture - Final NO METHICILLIN RESISTANT STAPH AUREUS... Complete 03/05/17 13:20 Urine,Clean Catch Urine Culture - Final Escherichia Coli - Esbl Complete 03/05/17 15:15 Rectum VRE Culture - Final NO VANCOMYCIN RESISTANT ENTEROCOCCUS ... Complete Laboratory Tests Test 03/07/17 05:15 White Blood Count 2.5 K/UL (4.8-10.8) L Red Blood Count 4.69 M/UL (4.70-6.10) L Hemoglobin 14.7 G/DL (14.2-18.0) Hematocrit 42.7 % (42.0-52.0) Mean Corpuscular Volume 91 FL (80-99) Mean Corpuscular Hemoglobin 31.3 PG (27.0-31.0) H Mean Corpuscular Hemoglobin Concent 34.4 G/DL (32.0-36.0) Red Cell Distribution Width 12.3 % (11.6-14.8) Platelet Count 77 K/UL (150-450) L Mean Platelet Volume 8.4 FL (6.5-10.1) Neutrophils (%) (Auto) % (45.0-75.0) Lymphocytes (%) (Auto) % (20.0-45.0) Monocytes (%) (Auto) % (1.0-10.0) Eosinophils (%) (Auto) % (0.0-3.0) Basophils (%) (Auto) % (0.0-2.0) Differential Total Cells Counted 100 Neutrophils % (Manual) 42 % (45-75) L Lymphocytes % (Manual) 46 % (20-45) H Monocytes % (Manual) 11 % (1-10) H Eosinophils % (Manual) 1 % (0-3) Basophils % (Manual) 0 % (0-2) Band Neutrophils 0 % (0-8) Platelet Estimate Decreased L Platelet Morphology Normal Red Blood Cell Morphology Normal Sodium Level 134 mEQ/L (135-145) L Potassium Level 3.8 mEQ/L (3.4-4.9) Chloride Level 94 mEQ/L (98-107) L Carbon Dioxide Level 24 mEQ/L (20-30) Anion Gap 16 (5-15) H Blood Urea Nitrogen 21 mg/dL (7-23) Creatinine 1.0 mg/dL (0.7-1.2) Estimat Glomerular Filtration Rate > 60 mL/min (>60) Glucose Level 191 mg/dL (74-106) H Calcium Level 8.7 mg/dL (8.6-10.2) Current Medications Medications (Trade) Dose Ordered Sig/Javier Route PRN Reason Start Time Stop Time Status Last Admin Dose Admin Acetaminophen (Tylenol) 650 mg Q4H PRN ORAL fever 03/05/17 19:30 04/04/17 19:29 03/07/17 00:35 Clonidine HCl (Catapres) 0.1 mg Q6H PRN ORAL SBP > 160 03/05/17 21:45 04/04/17 21:44 03/05/17 22:16 Dextrose (Dextrose 50%) STAT PRN IV Hypoglycemia 03/05/17 19:30 04/04/17 19:29 Ertapenem/Sodium Chloride (INVanz/Sodium Chloride) 55 ml @ 110 mls/hr Q24H IVPB 03/07/17 16:00 03/12/17 15:59 03/07/17 16:38 Gabapentin (Neurontin) 100 mg THREE TIMES A DAY ORAL 03/06/17 09:00 04/05/17 08:59 03/07/17 18:06 Hydrochlorothiazide (Hydrodiuril) 12.5 mg DAILY ORAL 03/06/17 09:00 04/05/17 08:59 03/07/17 09:16 Ibuprofen (Motrin) 600 mg Q8H PRN ORAL For Pain 03/05/17 19:30 04/04/17 19:29 Insulin Aspart (NovoLOG) BEFORE MEALS AND HS SUBQ 03/05/17 21:00 04/04/17 20:59 03/07/17 20:53 Lorazepam (Ativan 2mg/ml 1ml) 1 mg Q4H PRN IV Agitation 03/05/17 19:30 03/12/17 19:29 Metoprolol Succinate (Toprol XL) 50 mg DAILY ORAL 03/06/17 09:00 04/05/17 08:59 03/07/17 09:16 Promethazine HCl/ Codeine 5 ml 5 ml Q4H PRN ORAL For Cough 03/05/17 21:45 04/04/17 21:44 03/07/17 11:30 Trazodone HCl (Desyrel) 150 mg BEDTIME ORAL 03/05/17 21:00 04/04/17 20:59 03/07/17 20:51 Ernie Jackson M.D. Mar 07, 2017 22:05
[2017-03-08] VITALS: BP 122/75
[2017-03-08 04:00] VITALS: BP 111/79
[2017-03-08] MEDS: NovoLOG Insulin Flexpen SUBQ SCH ×4 (06:25→21:00)
[2017-03-08 08:00] VITALS: BP 96/47
[2017-03-08 08:13] LABS: MEAN CORPUSCULAR HEMOGLOBIN 30.8 PG (27.0-31.0); MEAN CORPUSCULAR VOLUME 91 FL (80-99); MEAN PLATELET VOLUME 8.5 FL (6.5-10.1); PLATELET COUNT 80 K/UL (150-450); RED BLOOD COUNT 4.48 M/UL (4.70-6.10); RED CELL DISTRIBUTION WIDTH 12.3 % (11.6-14.8); WHITE BLOOD COUNT 2.4 K/UL (4.8-10.8)
[2017-03-08 08:44] LABS: ANION GAP 14 (5-15); CALCIUM 8.7 mg/dL (8.6-10.2); CARBON DIOXIDE 27 mEQ/L (20-30); CHLORIDE 96 mEQ/L (98-107); CREATININE 0.9 mg/dL (0.7-1.2); GLOMERULAR FILTRATION RATE > 60 mL/min (>60); HEMOLYSIS 2; POTASSIUM 3.9 mEQ/L (3.4-4.9); SODIUM 137 mEQ/L (135-145)
[2017-03-08 10:02] LABS: BAND NEUTROPHILS % (MANUAL) 0 % (0-8); BASOPHILS % (MANUAL) 0 % (0-2); EOSINOPHILS % (MANUAL) 3 % (0-3); LYMPHOCYTES % (MANUAL) 36 % (20-45); NEUTROPHILS % (MANUAL) 46 % (45-75); PLATELET ESTIMATE DECREASED; PLATELET MORPHOLOGY NORMAL; TOTAL CELLS COUNTED 100
[2017-03-08 12:00] VITALS: BP 136/79
--- NOTE | 2017-03-08 13:39 | General Progress Note ---
Assessment/Plan Problem List: (1) Hepatitis ICD Codes: K75.9 - Inflammatory liver disease, unspecified SNOMED: 159614869 (2) Thrombocytopenia ICD Codes: D69.6 - Thrombocytopenia, unspecified SNOMED: 537893491 (3) Sepsis ICD Codes: A41.9 - Sepsis, unspecified organism SNOMED: 21935174 (4) UTI (urinary tract infection) ICD Codes: N39.0 - Urinary tract infection, site not specified SNOMED: 78977087 (5) History of polydrug abuse ICD Codes: Z87.898 - Personal history of other specified conditions SNOMED: 508582106 (6) Fever ICD Codes: R50.9 - Fever, unspecified SNOMED: 022845923 (7) Psychiatric disorder ICD Codes: F99 - Mental disorder, not otherwise specified SNOMED: 21063479, 066104696 Assessment/Plan Monitor counts Abx perID Hematology consult - Dr Wells Monitor lytes - correct as needed Obtain list of psyche meds Monitor I&O Monitor temp Subjective Constitutional: Denies: chills, diaphoresis, fever, malaise, no symptoms, other , weakness HEENT: Denies: blurred vision, double vision, ear discharge, ear pain, eye pain , mouth pain, mouth swelling, no symptoms, nose congestion, nose pain, other, tearing, throat pain, throat swelling Cardiovascular: Denies: chest pain, edema, irregular heart rate, lightheadedness, no symptoms, other, palpitations, syncope Respiratory: Denies: SOB at rest, SOB with excertion, cough, no symptoms, orthopnea, other, shortness of breath, sputum, stridor, wheezing Gastrointestinal/Abdominal: Denies: abdomen distended, abdominal pain, black stools, blood in stool, constipated, diarrhea, difficulty swallowing, nausea, no symptoms, other, poor appetite, poor fluid intake, rectal bleeding, tarry stools, vomiting Genitourinary: Denies: burning, discharge, flank pain, frequency, hematuria, incontinence, no symptoms, other, pain, urgency Neurologic/Psychiatric: Denies: anxiety, depressed, emotional problems, headache, no symptoms, numbness, other, paresthesia, pre-existing deficit, seizure, tingling, tremors, weakness Endocrine: Denies: excessive sweating, flushing, increased hunger, increased thirst, increased urine, intolerance to cold, intolerance to heat, no symptoms, other, unexplained weight gain, unexplained weight loss Hematologic/Lymphatic: Denies: anemia, easy bleeding, easy bruising, no symptoms, other Allergies: Coded Allergies: No Known Allergies (Unverified , 03/05/17) Subjective In bed, in no apparent distress, denies discomfort Objective Last 24 Hour Vital Signs Date Time Temp Pulse Resp B/P Pulse Ox O2 Delivery O2 Flow Rate FiO2 03/08/17 08:58 71 96/47 03/08/17 08:00 73 03/08/17 08:00 97.7 71 20 96/47 91 Room Air 03/08/17 04:00 69 03/08/17 04:00 97.7 20 111/79 93 Room Air 03/08/17 00:00 98.6 73 20 122/75 91 Room Air 03/08/17 00:00 70 03/07/17 20:00 99.3 76 18 94/53 94 Room Air 03/07/17 20:00 80 03/07/17 16:07 97.7 67 18 109/56 95 Room Air 03/07/17 16:00 76 Intake and Output 03/07/17 03/08/17 19:00 07:00 Intake Total 360 ml Output Total 900 ml 200 ml Balance -540 ml -200 ml Intake Oral 360 ml Output Urine Total 900 ml 200 ml # Voids 1 Laboratory Tests 03/08/17 07:50: White Blood Count 2.4L, Red Blood Count 4.48L, Hemoglobin 13.8L, Hematocrit 40.6L, Mean Corpuscular Volume 91, Mean Corpuscular Hemoglobin 30.8, Mean Corpuscular Hemoglobin Concent 34.0, Red Cell Distribution Width 12.3, Platelet Count 80L, Mean Platelet Volume 8.5, Neutrophils (%) (Auto) , Lymphocytes (%) ( Auto) , Monocytes (%) (Auto) , Eosinophils (%) (Auto) , Basophils (%) (Auto) , Differential Total Cells Counted 100, Neutrophils % (Manual) 46, Lymphocytes % ( Manual) 36, Monocytes % (Manual) 15H, Eosinophils % (Manual) 3, Basophils % ( Manual) 0, Band Neutrophils 0, Platelet Estimate DecreasedL, Platelet Morphology Normal, Red Blood Cell Morphology Normal, Sodium Level 137, Potassium Level 3.9, Chloride Level 96L, Carbon Dioxide Level 27, Anion Gap 14, Blood Urea Nitrogen 20, Creatinine 0.9, Estimat Glomerular Filtration Rate > 60 , Glucose Level 229H, Calcium Level 8.7 Height (Feet): 5 Height (Inches): 10.00 Weight (Pounds): 270 General Appearance: no apparent distress, alert EENT: PERRL/EOMI, normal ENT inspection Neck: normal alignment, supple Cardiovascular: normal rate, regular rhythm, no JVD Respiratory/Chest: normal breath sounds, no respiratory distress Abdomen: non tender, soft Neurologic: alert, oriented x 3, responsive, normal mood/affect Skin: normal pigmentation, warm/dry Aggie Elias N.P. Mar 08, 2017 13:39
[2017-03-08] MEDS: Ertapenem 1 GM in NS 55 ML IVPB SCH (15:25)
--- NOTE | 2017-03-08 15:37 | Infectious Diseases Prog Note ---
Assessment/Plan Problems: (1) Sepsis Assessment & Plan: with negative blood culture, and urine culture grew E coli ESBL + , on ertapenem to treat for 7 days (2) UTI (urinary tract infection) Assessment & Plan: due to ESBL + E coli , on ertapenem to treat for 7 days (3) Hepatitis Assessment & Plan: will screen for hepatitis , and confirm , recommend for treatment as an outpatient (4) Polysubstance abuse Assessment & Plan: recommend counseling and rehabilitation Subjective Constitutional: Reports: no symptoms HEENT: Reports: no symptoms Respiratory: Reports: no symptoms Breasts: Reports: no symptoms Cardiovascular: Reports: no symptoms Gastrointestinal/Abdominal: Reports: no symptoms Genitourinary: Reports: no symptoms Neurologic: Reports: no symptoms Psychiatric: Reports: no symptoms Skin: Reports: no symptoms Endocrine: Reports: no symptoms Allergies: Coded Allergies: No Known Allergies (Unverified , 03/05/17) Objective Vital Signs Last 24 Hour Vital Signs Date Time Temp Pulse Resp B/P Pulse Ox O2 Delivery O2 Flow Rate FiO2 03/08/17 12:00 68 03/08/17 12:00 97.2 69 20 136/79 93 Room Air 03/08/17 08:58 71 96/47 03/08/17 08:00 73 03/08/17 08:00 97.7 71 20 96/47 91 Room Air 03/08/17 04:00 69 03/08/17 04:00 97.7 20 111/79 93 Room Air 03/08/17 00:00 98.6 73 20 122/75 91 Room Air 03/08/17 00:00 70 03/07/17 20:00 99.3 76 18 94/53 94 Room Air 03/07/17 20:00 80 03/07/17 16:07 97.7 67 18 109/56 95 Room Air 03/07/17 16:00 76 Height (Feet): 5 Height (Inches): 10.00 Weight (Pounds): 270 General Appearance: WD/WN, no acute distress HEENT: normocephalic, atraumatic, anicteric, mucous membranes moist Respiratory/Chest: chest wall non-tender, normal breath sounds, no respiratory distress, no accessory muscle use, decreased breath sounds, expiratory wheezing Cardiovascular: normal peripheral pulses, normal rate, regular rhythm, no gallop/murmur Abdomen: normal bowel sounds, soft, non tender, no organomegaly, non distended , no mass, no scars Extremities: no cyanosis, no clubbing Skin: no rash, no lesions Laboratory Tests Test 03/08/17 07:50 White Blood Count 2.4 K/UL (4.8-10.8) L Red Blood Count 4.48 M/UL (4.70-6.10) L Hemoglobin 13.8 G/DL (14.2-18.0) L Hematocrit 40.6 % (42.0-52.0) L Mean Corpuscular Volume 91 FL (80-99) Mean Corpuscular Hemoglobin 30.8 PG (27.0-31.0) Mean Corpuscular Hemoglobin Concent 34.0 G/DL (32.0-36.0) Red Cell Distribution Width 12.3 % (11.6-14.8) Platelet Count 80 K/UL (150-450) L Mean Platelet Volume 8.5 FL (6.5-10.1) Neutrophils (%) (Auto) % (45.0-75.0) Lymphocytes (%) (Auto) % (20.0-45.0) Monocytes (%) (Auto) % (1.0-10.0) Eosinophils (%) (Auto) % (0.0-3.0) Basophils (%) (Auto) % (0.0-2.0) Differential Total Cells Counted 100 Neutrophils % (Manual) 46 % (45-75) Lymphocytes % (Manual) 36 % (20-45) Monocytes % (Manual) 15 % (1-10) H Eosinophils % (Manual) 3 % (0-3) Basophils % (Manual) 0 % (0-2) Band Neutrophils 0 % (0-8) Platelet Estimate Decreased L Platelet Morphology Normal Red Blood Cell Morphology Normal Sodium Level 137 mEQ/L (135-145) Potassium Level 3.9 mEQ/L (3.4-4.9) Chloride Level 96 mEQ/L (98-107) L Carbon Dioxide Level 27 mEQ/L (20-30) Anion Gap 14 (5-15) Blood Urea Nitrogen 20 mg/dL (7-23) Creatinine 0.9 mg/dL (0.7-1.2) Estimat Glomerular Filtration Rate > 60 mL/min (>60) Glucose Level 229 mg/dL (74-106) H Calcium Level 8.7 mg/dL (8.6-10.2) Current Medications Medications (Trade) Dose Ordered Sig/Javier Route PRN Reason Start Time Stop Time Status Last Admin Dose Admin Acetaminophen (Tylenol) 650 mg Q4H PRN ORAL fever 03/05/17 19:30 04/04/17 19:29 03/07/17 00:35 Clonidine HCl (Catapres) 0.1 mg Q6H PRN ORAL SBP > 160 03/05/17 21:45 04/04/17 21:44 03/05/17 22:16 Dextrose (Dextrose 50%) STAT PRN IV Hypoglycemia 03/05/17 19:30 04/04/17 19:29 Ertapenem/Sodium Chloride (INVanz/Sodium Chloride) 55 ml @ 110 mls/hr Q24H IVPB 03/07/17 16:00 03/12/17 15:59 03/08/17 15:25 Gabapentin (Neurontin) 100 mg THREE TIMES A DAY ORAL 03/06/17 09:00 04/05/17 08:59 03/08/17 12:49 Hydrochlorothiazide (Hydrodiuril) 12.5 mg DAILY ORAL 03/06/17 09:00 04/05/17 08:59 03/08/17 08:58 Ibuprofen (Motrin) 600 mg Q8H PRN ORAL For Pain 03/05/17 19:30 04/04/17 19:29 Insulin Aspart (NovoLOG) BEFORE MEALS AND HS SUBQ 03/05/17 21:00 04/04/17 20:59 03/08/17 11:41 Lorazepam (Ativan 2mg/ml 1ml) 1 mg Q4H PRN IV Agitation 03/05/17 19:30 03/12/17 19:29 Metoprolol Succinate (Toprol XL) 50 mg DAILY ORAL 03/06/17 09:00 04/05/17 08:59 03/07/17 09:16 Promethazine HCl/ Codeine 5 ml 5 ml Q4H PRN ORAL For Cough 03/05/17 21:45 04/04/17 21:44 03/07/17 11:30 Trazodone HCl (Desyrel) 150 mg BEDTIME ORAL 03/05/17 21:00 04/04/17 20:59 03/07/17 20:51 Ernie Jackson M.D. Mar 08, 2017 15:36
[2017-03-08 16:00] VITALS: BP 116/76
[2017-03-08] MEDS: Promethazine/Codeine 5ml UD ORAL PRN (16:41)
--- NOTE | 2017-03-08 17:15 | General Progress Note ---
Assessment/Plan Assessment/Plan ASSESSMENT: #. Leukopenia is likely related to patient's splenomegaly as well as history of hepatitis, continue to monitor. Also has sepsis at the moment #. Thrombocytopenia - related to his hep C as well as liver cirrhosis, will followup with Gi team/service #. Splenomegaly due to history of chronic hepatitis C, needs followup and rx #. Sepsis. on abx for suspected uti, being followed by ID team #. Urinary tract infection with Gram-negative rods on ceftriaxone #. Hepatitis, chronic hepatitis C. We will screen for hepatitis andconfirm. GI followup #. Polysubstance abuse. Recommend counseling and rehabilitation. RECS: - Monitor counts - Hepatitis panel is pending to confirm dx - Medications have been reviewed - Plt count has been >50k consistently - Consider transfusion only if hgb <7, plt <20k - Abx as per ID service, conside NEUPOGEN if ANC lower - Peripheral smear ordered and will be reviewed - Appreciate consultation!! Subjective Constitutional: Reports: no symptoms HEENT: Reports: no symptoms Cardiovascular: Reports: no symptoms Respiratory: Reports: no symptoms Gastrointestinal/Abdominal: Reports: no symptoms Genitourinary: Reports: no symptoms Neurologic/Psychiatric: Reports: no symptoms Endocrine: Reports: no symptoms Hematologic/Lymphatic: Reports: anemia Allergies: Coded Allergies: No Known Allergies (Unverified , 03/05/17) Subjective stable, no events overnight, h/h stable Objective Last 24 Hour Vital Signs Date Time Temp Pulse Resp B/P Pulse Ox O2 Delivery O2 Flow Rate FiO2 03/08/17 16:00 96.8 70 21 116/76 94 Room Air 03/08/17 12:00 68 03/08/17 12:00 97.2 69 20 136/79 93 Room Air 03/08/17 08:58 71 96/47 03/08/17 08:00 73 03/08/17 08:00 97.7 71 20 96/47 91 Room Air 03/08/17 04:00 69 03/08/17 04:00 97.7 20 111/79 93 Room Air 03/08/17 00:00 98.6 73 20 122/75 91 Room Air 03/08/17 00:00 70 03/07/17 20:00 99.3 76 18 94/53 94 Room Air 03/07/17 20:00 80 Intake and Output 03/07/17 03/08/17 19:00 07:00 Intake Total 360 ml Output Total 900 ml 200 ml Balance -540 ml -200 ml Intake Oral 360 ml Output Urine Total 900 ml 200 ml # Voids 1 Laboratory Tests 03/08/17 07:50: White Blood Count 2.4L, Red Blood Count 4.48L, Hemoglobin 13.8L, Hematocrit 40.6L, Mean Corpuscular Volume 91, Mean Corpuscular Hemoglobin 30.8, Mean Corpuscular Hemoglobin Concent 34.0, Red Cell Distribution Width 12.3, Platelet Count 80L, Mean Platelet Volume 8.5, Neutrophils (%) (Auto) , Lymphocytes (%) ( Auto) , Monocytes (%) (Auto) , Eosinophils (%) (Auto) , Basophils (%) (Auto) , Differential Total Cells Counted 100, Neutrophils % (Manual) 46, Lymphocytes % ( Manual) 36, Monocytes % (Manual) 15H, Eosinophils % (Manual) 3, Basophils % ( Manual) 0, Band Neutrophils 0, Platelet Estimate DecreasedL, Platelet Morphology Normal, Red Blood Cell Morphology Normal, Sodium Level 137, Potassium Level 3.9, Chloride Level 96L, Carbon Dioxide Level 27, Anion Gap 14, Blood Urea Nitrogen 20, Creatinine 0.9, Estimat Glomerular Filtration Rate > 60 , Glucose Level 229H, Calcium Level 8.7 Height (Feet): 5 Height (Inches): 10.00 Weight (Pounds): 270 General Appearance: alert EENT: pharynx normal Neck: normal inspection Cardiovascular: regular rhythm Respiratory/Chest: lungs clear Abdomen: non tender Extremities: non-tender Edema: 1+ Leg (L), 1+ Leg (R) Edema: mild edema Neurologic: alert Skin: warm/dry Jose Wells Mar 08, 2017 17:15
[2017-03-08 20:00] VITALS: BP 121/83
[2017-03-08] MEDS: TraZODone 50mg tab ORAL SCH (21:01)
[2017-03-08] MEDS ORDERED: LORazepam Inj 2mg/ml 1ml IV PRN (22:45)
[2017-03-08] MEDS ORDERED: Promethazine/Codeine 5ml UD ORAL PRN (22:46)
[2017-03-09] VITALS: BP 141/83
[2017-03-09 04:00] VITALS: BP 133/71
[2017-03-09] MEDS: NovoLOG Insulin Flexpen SUBQ SCH ×3 (06:22→21:47)
[2017-03-09 06:54] LABS: MEAN CORPUSCULAR HEMOGLOBIN 31.3 PG (27.0-31.0); MEAN CORPUSCULAR HGB CONC 34.7 G/DL (32.0-36.0); MEAN CORPUSCULAR VOLUME 90 FL (80-99); MEAN PLATELET VOLUME 8.1 FL (6.5-10.1); PLATELET COUNT 89 K/UL (150-450); RED BLOOD COUNT 4.46 M/UL (4.70-6.10); RED CELL DISTRIBUTION WIDTH 12.5 % (11.6-14.8); WHITE BLOOD COUNT 2.8 K/UL (4.8-10.8)
[2017-03-09 06:58] LABS: ANION GAP 11 (5-15); CALCIUM 9.2 mg/dL (8.6-10.2); CARBON DIOXIDE 27 mEQ/L (20-30); CHLORIDE 99 mEQ/L (98-107); CREATININE 0.8 mg/dL (0.7-1.2); GLOMERULAR FILTRATION RATE > 60 mL/min (>60); HEMOLYSIS 5; SODIUM 137 mEQ/L (135-145)
[2017-03-09 08:00] VITALS: BP 122/81
[2017-03-09 08:55] LABS: BAND NEUTROPHILS % (MANUAL) 0 % (0-8); BASOPHILS % (MANUAL) 0 % (0-2); EOSINOPHILS % (MANUAL) 5 % (0-3); LYMPHOCYTES % (MANUAL) 40 % (20-45); NEUTROPHILS % (MANUAL) 45 % (45-75); PLATELET ESTIMATE DECREASED; PLATELET MORPHOLOGY NORMAL; TOTAL CELLS COUNTED 100
[2017-03-09 09:22] LABS: HEPATITIS A ANTIBODY TOTAL Negative (Negative)
--- NOTE | 2017-03-09 10:31 | General Progress Note ---
Assessment/Plan Assessment/Plan ASSESSMENT: #. Leukopenia is likely related to patient's splenomegaly as well as history of hepatitis, continue to monitor. Also has sepsis at the moment #. Thrombocytopenia - related to his hep C as well as liver cirrhosis, will followup with Gi team/service #. Splenomegaly due to history of chronic hepatitis C, needs followup and rx #. Sepsis. on abx for suspected uti, being followed by ID team #. Urinary tract infection with Gram-negative rods on ceftriaxone #. Hepatitis, chronic hepatitis C. GI followup #. Polysubstance abuse. Recommend counseling and rehabilitation. RECS: - Monitor counts - Hepatitis panel is pending to confirm dx - Medications have been reviewed - Plt count has been >50k consistently - Consider transfusion only if hgb <7, plt <20k - Abx as per ID service, conside NEUPOGEN if ANC lower - Peripheral smear ordered and will be reviewed - Appreciate consultation!! Subjective Constitutional: Reports: no symptoms HEENT: Reports: no symptoms Cardiovascular: Reports: no symptoms Respiratory: Reports: no symptoms Gastrointestinal/Abdominal: Reports: no symptoms Genitourinary: Reports: no symptoms Neurologic/Psychiatric: Reports: no symptoms Endocrine: Reports: no symptoms Hematologic/Lymphatic: Reports: anemia Allergies: Coded Allergies: No Known Allergies (Unverified , 03/05/17) Subjective stable, no events overnight, no fevers reported Objective Last 24 Hour Vital Signs Date Time Temp Pulse Resp B/P Pulse Ox O2 Delivery O2 Flow Rate FiO2 03/09/17 08:26 81 122/81 03/09/17 08:00 97.5 81 18 122/81 95 Room Air 03/09/17 04:00 98.6 72 18 133/71 95 Room Air 03/09/17 00:00 98.8 73 18 141/83 95 Room Air 03/08/17 20:00 97.0 70 20 121/83 95 Room Air 03/08/17 16:00 96.8 70 21 116/76 94 Room Air 03/08/17 16:00 66 03/08/17 12:00 68 03/08/17 12:00 97.2 69 20 136/79 93 Room Air Intake and Output 03/08/17 03/09/17 19:00 07:00 Intake Total 1410 ml 375 ml Output Total 750 ml Balance 660 ml 375 ml Intake Oral 1300 ml 375 ml IV Total 110 ml Output Urine Total 750 ml # Voids 2 Laboratory Tests 03/09/17 05:00: White Blood Count 2.8L, Red Blood Count 4.46L, Hemoglobin 14.0L, Hematocrit 40.2L, Mean Corpuscular Volume 90, Mean Corpuscular Hemoglobin 31.3H, Mean Corpuscular Hemoglobin Concent 34.7, Red Cell Distribution Width 12.5, Platelet Count 89L, Mean Platelet Volume 8.1, Neutrophils (%) (Auto) , Lymphocytes (%) ( Auto) , Monocytes (%) (Auto) , Eosinophils (%) (Auto) , Basophils (%) (Auto) , Differential Total Cells Counted 100, Neutrophils % (Manual) 45, Lymphocytes % ( Manual) 40, Monocytes % (Manual) 10, Eosinophils % (Manual) 5H, Basophils % ( Manual) 0, Band Neutrophils 0, Platelet Estimate DecreasedL, Platelet Morphology Normal, Red Blood Cell Morphology Normal, Sodium Level 137, Potassium Level 4.0, Chloride Level 99, Carbon Dioxide Level 27, Anion Gap 11, Blood Urea Nitrogen 15, Creatinine 0.8, Estimat Glomerular Filtration Rate > 60 , Glucose Level 197H, Calcium Level 9.2 Height (Feet): 5 Height (Inches): 10.00 Weight (Pounds): 270 General Appearance: alert EENT: TMs normal Neck: normal inspection Cardiovascular: regular rhythm Respiratory/Chest: lungs clear Abdomen: no mass Extremities: non-tender Edema: 1+ Leg (L), 1+ Leg (R) Edema: mild edema Neurologic: alert Skin: warm/dry Jose Wells Mar 09, 2017 10:31
[2017-03-09 11:58] VITALS: BP 126/80
[2017-03-09] MEDS: Ertapenem 1 GM in NS 55 ML IVPB SCH (15:34)
[2017-03-09 15:54] VITALS: BP 123/70
[2017-03-09 20:00] VITALS: BP 133/81
--- NOTE | 2017-03-09 21:33 | Infectious Diseases Prog Note ---
Assessment/Plan Problems: (1) Sepsis Assessment & Plan: with negative blood culture, and urine culture grew E coli ESBL + , on ertapenem to treat for 7 days (2) UTI (urinary tract infection) Assessment & Plan: due to ESBL + E coli , on ertapenem to treat for 7 days (3) Hepatitis Assessment & Plan: will screen for hepatitis , and confirm , recommend for treatment as an outpatient (4) Polysubstance abuse Assessment & Plan: recommend counseling and rehabilitation Subjective Constitutional: Reports: no symptoms HEENT: Reports: no symptoms Respiratory: Reports: no symptoms Cardiovascular: Reports: no symptoms Gastrointestinal/Abdominal: Reports: no symptoms Genitourinary: Reports: no symptoms Neurologic: Reports: no symptoms Psychiatric: Reports: no symptoms Skin: Reports: no symptoms Endocrine: Reports: no symptoms Allergies: Coded Allergies: No Known Allergies (Unverified , 03/05/17) Objective Vital Signs Last 24 Hour Vital Signs Date Time Temp Pulse Resp B/P Pulse Ox O2 Delivery O2 Flow Rate FiO2 03/09/17 20:00 96.6 75 18 133/81 96 Room Air 03/09/17 15:54 97.5 70 18 123/70 96 Room Air 03/09/17 11:58 97.5 69 18 126/80 95 Room Air 03/09/17 08:26 81 122/81 03/09/17 08:00 97.5 81 18 122/81 95 Room Air 03/09/17 04:00 98.6 72 18 133/71 95 Room Air 03/09/17 00:00 98.8 73 18 141/83 95 Room Air Height (Feet): 5 Height (Inches): 10.00 Weight (Pounds): 270 General Appearance: WD/WN, no acute distress HEENT: normocephalic, atraumatic, anicteric, mucous membranes moist Respiratory/Chest: chest wall non-tender, lungs clear, normal breath sounds, no respiratory distress, no accessory muscle use Cardiovascular: normal peripheral pulses, normal rate, regular rhythm, no gallop/murmur, no JVD Abdomen: normal bowel sounds, soft, non tender, no organomegaly, non distended , no mass Extremities: no cyanosis, no clubbing Laboratory Tests Test 03/09/17 05:00 White Blood Count 2.8 K/UL (4.8-10.8) L Red Blood Count 4.46 M/UL (4.70-6.10) L Hemoglobin 14.0 G/DL (14.2-18.0) L Hematocrit 40.2 % (42.0-52.0) L Mean Corpuscular Volume 90 FL (80-99) Mean Corpuscular Hemoglobin 31.3 PG (27.0-31.0) H Mean Corpuscular Hemoglobin Concent 34.7 G/DL (32.0-36.0) Red Cell Distribution Width 12.5 % (11.6-14.8) Platelet Count 89 K/UL (150-450) L Mean Platelet Volume 8.1 FL (6.5-10.1) Neutrophils (%) (Auto) % (45.0-75.0) Lymphocytes (%) (Auto) % (20.0-45.0) Monocytes (%) (Auto) % (1.0-10.0) Eosinophils (%) (Auto) % (0.0-3.0) Basophils (%) (Auto) % (0.0-2.0) Differential Total Cells Counted 100 Neutrophils % (Manual) 45 % (45-75) Lymphocytes % (Manual) 40 % (20-45) Monocytes % (Manual) 10 % (1-10) Eosinophils % (Manual) 5 % (0-3) H Basophils % (Manual) 0 % (0-2) Band Neutrophils 0 % (0-8) Platelet Estimate Decreased L Platelet Morphology Normal Red Blood Cell Morphology Normal Sodium Level 137 mEQ/L (135-145) Potassium Level 4.0 mEQ/L (3.4-4.9) Chloride Level 99 mEQ/L (98-107) Carbon Dioxide Level 27 mEQ/L (20-30) Anion Gap 11 (5-15) Blood Urea Nitrogen 15 mg/dL (7-23) Creatinine 0.8 mg/dL (0.7-1.2) Estimat Glomerular Filtration Rate > 60 mL/min (>60) Glucose Level 197 mg/dL (74-106) H Calcium Level 9.2 mg/dL (8.6-10.2) Current Medications Medications (Trade) Dose Ordered Sig/Javier Route PRN Reason Start Time Stop Time Status Last Admin Dose Admin Acetaminophen (Tylenol) 650 mg Q4H PRN ORAL fever 03/08/17 22:42 04/07/17 22:41 Clonidine HCl (Catapres) 0.1 mg Q6H PRN ORAL SBP > 160 03/08/17 22:43 04/07/17 22:42 Dextrose (Dextrose 50%) STAT PRN IV Hypoglycemia 03/08/17 22:43 04/07/17 22:42 Ertapenem/Sodium Chloride (INVanz/Sodium Chloride) 55 ml @ 110 mls/hr Q24H IVPB 03/09/17 16:00 03/14/17 15:59 03/09/17 15:34 Gabapentin (Neurontin) 100 mg THREE TIMES A DAY ORAL 03/09/17 09:00 04/08/17 08:59 03/09/17 13:06 Hydrochlorothiazide (Hydrodiuril) 12.5 mg DAILY ORAL 03/09/17 09:00 04/08/17 08:59 03/09/17 08:26 Ibuprofen (Motrin) 600 mg Q8H PRN ORAL For Pain 03/08/17 22:44 04/07/17 22:43 Insulin Aspart (NovoLOG) BEFORE MEALS AND HS SUBQ 03/09/17 06:30 04/08/17 06:29 03/09/17 11:38 Lorazepam (Ativan 2mg/ml 1ml) 1 mg Q4H PRN IV Agitation 03/08/17 22:45 03/15/17 22:44 Metoprolol Succinate (Toprol XL) 50 mg DAILY ORAL 03/09/17 09:00 04/08/17 08:59 03/09/17 08:26 Promethazine HCl/ Codeine (Phenergan with Codeine) 5 ml Q4H PRN ORAL For Cough 03/08/17 22:46 04/07/17 22:45 03/08/17 23:18 Trazodone HCl (Desyrel) 150 mg BEDTIME ORAL 03/09/17 21:00 04/08/17 20:59 Ernie Jackson M.D. Mar 09, 2017 21:33
[2017-03-09] MEDS: TraZODone 50mg tab ORAL SCH (21:41)
[2017-03-10] VITALS (7 sets, daily range): BP systolic 117–157; BP diastolic 60–95
[2017-03-10] MEDS: NovoLOG Insulin Flexpen SUBQ SCH ×4 (06:44→20:56)
--- NOTE | 2017-03-10 11:26 | General Progress Note ---
Assessment/Plan Assessment/Plan ASSESSMENT: #. Leukopenia is likely related to patient's splenomegaly as well as history of hepatitis C, continue to monitor. Also has sepsis #. Thrombocytopenia - related to his hep C as well as liver cirrhosis, will followup with Gi team/service #. Splenomegaly due to history of chronic hepatitis C, needs followup and rx #. Sepsis. on abx for suspected uti, being followed by ID team #. Urinary tract infection with Gram-negative rods on ceftriaxone #. Hepatitis, chronic hepatitis C. GI followup #. Polysubstance abuse. Recommend counseling and rehabilitation. RECS: - Monitor counts - Hepatitis panel is pending to confirm dx - Medications have been reviewed - Plt count has been >50k consistently - Consider transfusion only if hgb <7, plt <20k - Abx as per ID service, consider NEUPOGEN if ANC lower - Peripheral smear ordered and will be reviewed - Appreciate consultation!! Subjective Constitutional: Reports: no symptoms HEENT: Reports: no symptoms Cardiovascular: Reports: no symptoms Respiratory: Reports: no symptoms Gastrointestinal/Abdominal: Reports: no symptoms Genitourinary: Reports: no symptoms Neurologic/Psychiatric: Reports: no symptoms Endocrine: Reports: no symptoms Hematologic/Lymphatic: Reports: anemia Allergies: Coded Allergies: No Known Allergies (Unverified , 03/05/17) Subjective stable, no events overnight Objective Last 24 Hour Vital Signs Date Time Temp Pulse Resp B/P Pulse Ox O2 Delivery O2 Flow Rate FiO2 03/10/17 09:17 78 132/95 03/10/17 08:45 96.8 78 17 132/95 96 Room Air 03/10/17 04:00 97.6 76 18 134/90 96 Room Air 03/10/17 00:00 97.6 73 18 120/69 96 Room Air 03/09/17 20:00 96.6 75 18 133/81 96 Room Air 03/09/17 15:54 97.5 70 18 123/70 96 Room Air 03/09/17 11:58 97.5 69 18 126/80 95 Room Air Intake and Output 03/09/17 03/10/17 19:00 07:00 Intake Total 375 ml Output Total 750 ml Balance -375 ml Intake Oral 375 ml Output Urine Total 750 ml # Voids 4 Height (Feet): 5 Height (Inches): 10.00 Weight (Pounds): 270 General Appearance: no apparent distress EENT: TMs normal Neck: supple Cardiovascular: regular rhythm Respiratory/Chest: normal breath sounds Abdomen: no mass Pelvis: normal rectal exam Genitourinary/Rectal: heme negative stool Extremities: normal inspection Edema: mild edema Neurologic: alert Skin: warm/dry Jose Wells Mar 10, 2017 11:26
--- NOTE | 2017-03-10 15:16 | Infectious Diseases Prog Note ---
Assessment/Plan Problems: (1) Sepsis Assessment & Plan: with negative blood culture, and urine culture grew E coli ESBL + , on ertapenem to treat for 7 days , EOT 03/15/17 (2) UTI (urinary tract infection) Assessment & Plan: due to ESBL + E coli , on ertapenem to treat for 7 days , EOT 03/15/17 (3) Hepatitis Assessment & Plan: hep c ab is positive, will order viral load , recommend treatment as an outpatient with GI . (4) Polysubstance abuse Assessment & Plan: recommend counseling and rehabilitation Subjective Constitutional: Reports: no symptoms HEENT: Reports: no symptoms Respiratory: Reports: no symptoms Cardiovascular: Reports: no symptoms Gastrointestinal/Abdominal: Reports: no symptoms Genitourinary: Reports: no symptoms Neurologic: Reports: no symptoms Psychiatric: Reports: no symptoms Skin: Reports: no symptoms Endocrine: Reports: no symptoms Allergies: Coded Allergies: No Known Allergies (Unverified , 03/05/17) Objective Vital Signs Last 24 Hour Vital Signs Date Time Temp Pulse Resp B/P Pulse Ox O2 Delivery O2 Flow Rate FiO2 03/10/17 12:31 98.2 70 18 117/60 94 Room Air 03/10/17 09:17 78 132/95 03/10/17 08:45 96.8 78 17 132/95 96 Room Air 03/10/17 04:00 97.6 76 18 134/90 96 Room Air 03/10/17 00:00 97.6 73 18 120/69 96 Room Air 03/09/17 20:00 96.6 75 18 133/81 96 Room Air 03/09/17 15:54 97.5 70 18 123/70 96 Room Air Height (Feet): 5 Height (Inches): 10.00 Weight (Pounds): 270 General Appearance: WD/WN, no acute distress HEENT: normocephalic, atraumatic, anicteric, mucous membranes moist Respiratory/Chest: chest wall non-tender, lungs clear, normal breath sounds, no respiratory distress, no accessory muscle use Cardiovascular: normal peripheral pulses, normal rate, regular rhythm, no gallop/murmur, no JVD Abdomen: normal bowel sounds, soft, non tender, no organomegaly, non distended , no mass Extremities: no cyanosis, no clubbing Skin: no rash, no lesions Current Medications Medications (Trade) Dose Ordered Sig/Javier Route PRN Reason Start Time Stop Time Status Last Admin Dose Admin Acetaminophen (Tylenol) 650 mg Q4H PRN ORAL fever 03/08/17 22:42 04/07/17 22:41 Clonidine HCl (Catapres) 0.1 mg Q6H PRN ORAL SBP > 160 03/08/17 22:43 04/07/17 22:42 Dextrose (Dextrose 50%) STAT PRN IV Hypoglycemia 03/08/17 22:43 04/07/17 22:42 Ertapenem/Sodium Chloride (INVanz/Sodium Chloride) 55 ml @ 110 mls/hr Q24H IVPB 03/09/17 16:00 03/14/17 15:59 03/09/17 15:34 Gabapentin (Neurontin) 100 mg THREE TIMES A DAY ORAL 03/09/17 09:00 04/08/17 08:59 03/10/17 12:58 Hydrochlorothiazide (Hydrodiuril) 12.5 mg DAILY ORAL 03/09/17 09:00 04/08/17 08:59 03/10/17 09:17 Ibuprofen (Motrin) 600 mg Q8H PRN ORAL For Pain 03/08/17 22:44 04/07/17 22:43 Insulin Aspart (NovoLOG) BEFORE MEALS AND HS SUBQ 03/09/17 06:30 04/08/17 06:29 03/10/17 11:16 Lorazepam (Ativan 2mg/ml 1ml) 1 mg Q4H PRN IV Agitation 03/08/17 22:45 03/15/17 22:44 Metoprolol Succinate (Toprol XL) 50 mg DAILY ORAL 03/09/17 09:00 04/08/17 08:59 03/10/17 09:17 Promethazine HCl/ Codeine (Phenergan with Codeine) 5 ml Q4H PRN ORAL For Cough 03/08/17 22:46 04/07/17 22:45 03/08/17 23:18 Trazodone HCl (Desyrel) 150 mg BEDTIME ORAL 03/09/17 21:00 04/08/17 20:59 03/09/17 21:41 Ernie Jackson M.D. Mar 10, 2017 15:16
[2017-03-10] MEDS ORDERED: Tubing IV Secondary IV ONE (15:45)
[2017-03-10] MEDS ORDERED: NS 275ml ONE (15:45)
[2017-03-10] MEDS: Ertapenem 1 GM in NS 55 ML IVPB SCH (16:00)
--- NOTE | 2017-03-10 16:21 | Cardiology Report ---
APPROVED REPORT EKG Measurement Heart [id number] Normal sinus rhythm Normal ECG
[2017-03-10] MEDS: TraZODone 50mg tab ORAL SCH (20:52)
--- NOTE | 2017-03-10 21:13 | General Progress Note ---
Assessment/Plan Problem List: (1) Hepatitis ICD Codes: K75.9 - Inflammatory liver disease, unspecified SNOMED: 717685834 (2) Thrombocytopenia ICD Codes: D69.6 - Thrombocytopenia, unspecified SNOMED: 934925022 (3) Sepsis ICD Codes: A41.9 - Sepsis, unspecified organism SNOMED: 17389895 (4) UTI (urinary tract infection) ICD Codes: N39.0 - Urinary tract infection, site not specified SNOMED: 76359631 (5) History of polydrug abuse ICD Codes: Z87.898 - Personal history of other specified conditions SNOMED: 140417821 (6) Fever ICD Codes: R50.9 - Fever, unspecified SNOMED: 525615837 (7) Psychiatric disorder ICD Codes: F99 - Mental disorder, not otherwise specified SNOMED: 05540507, 708043288 Assessment/Plan Monitor counts Abx perID Hematology f/u Monitor lytes - correct as needed Monitor I&O Monitor temp Subjective Constitutional: Denies: chills, diaphoresis, fever, malaise, no symptoms, other , weakness HEENT: Denies: blurred vision, double vision, ear discharge, ear pain, eye pain , mouth pain, mouth swelling, no symptoms, nose congestion, nose pain, other, tearing, throat pain, throat swelling Cardiovascular: Denies: chest pain, edema, irregular heart rate, lightheadedness, no symptoms, other, palpitations, syncope Gastrointestinal/Abdominal: Denies: abdomen distended, abdominal pain, black stools, blood in stool, constipated, diarrhea, difficulty swallowing, nausea, no symptoms, other, poor appetite, poor fluid intake, rectal bleeding, tarry stools, vomiting Genitourinary: Denies: burning, discharge, flank pain, frequency, hematuria, incontinence, no symptoms, other, pain, urgency Neurologic/Psychiatric: Denies: anxiety, depressed, emotional problems, headache, no symptoms, numbness, other, paresthesia, pre-existing deficit, seizure, tingling, tremors, weakness Endocrine: Denies: excessive sweating, flushing, increased hunger, increased thirst, increased urine, intolerance to cold, intolerance to heat, no symptoms, other, unexplained weight gain, unexplained weight loss Hematologic/Lymphatic: Denies: anemia, easy bleeding, easy bruising, no symptoms, other Allergies: Coded Allergies: No Known Allergies (Unverified , 03/05/17) Subjective In bed, in no apparent distress, denies discomfort Objective Last 24 Hour Vital Signs Date Time Temp Pulse Resp B/P Pulse Ox O2 Delivery O2 Flow Rate FiO2 03/10/17 20:52 161/88 03/10/17 20:00 98.2 70 22 157/87 96 Room Air 03/10/17 16:45 97.0 71 19 119/85 98 Room Air 03/10/17 12:31 98.2 70 18 117/60 94 Room Air 03/10/17 09:17 78 132/95 03/10/17 08:45 96.8 78 17 132/95 96 Room Air 03/10/17 04:00 97.6 76 18 134/90 96 Room Air 03/10/17 00:00 97.6 73 18 120/69 96 Room Air Intake and Output 03/09/17 03/10/17 19:00 07:00 Intake Total 375 ml Output Total 750 ml Balance -375 ml Intake Oral 375 ml Output Urine Total 750 ml # Voids 4 Height (Feet): 5 Height (Inches): 10.00 Weight (Pounds): 270 General Appearance: no apparent distress, alert EENT: normal ENT inspection, TMs normal Neck: normal alignment, supple Cardiovascular: normal rate, regular rhythm, no JVD Respiratory/Chest: normal breath sounds, no respiratory distress Abdomen: normal bowel sounds, non tender, soft Neurologic: alert, oriented x 3, responsive, normal mood/affect Skin: normal pigmentation, warm/dry Aggie Elias N.P. Mar 10, 2017 21:13
[2017-03-11] VITALS (7 sets, daily range): BP systolic 112–136; BP diastolic 72–83
[2017-03-11] MEDS: NovoLOG Insulin Flexpen SUBQ SCH ×4 (06:45→21:26)
[2017-03-11 07:23] LABS: BASOPHILS % (AUTO) 0.6 % (0.0-2.0); EOSINOPHILS % (AUTO) 3.3 % (0.0-3.0); LYMPHOCYTES % (AUTO) 37.4 % (20.0-45.0); MEAN CORPUSCULAR HEMOGLOBIN 30.6 PG (27.0-31.0); MEAN CORPUSCULAR HGB CONC 34.3 G/DL (32.0-36.0); MEAN CORPUSCULAR VOLUME 89 FL (80-99); MEAN PLATELET VOLUME 7.2 FL (6.5-10.1); MONOCYTES % (AUTO) 12.5 % (1.0-10.0); NEUTROPHILS % (AUTO) 46.2 % (45.0-75.0); PLATELET COUNT 106 K/UL (150-450); RED BLOOD COUNT 4.52 M/UL (4.70-6.10); WHITE BLOOD COUNT 3.9 K/UL (4.8-10.8)
[2017-03-11 07:31] LABS: ANION GAP 11 (5-15); CALCIUM 9.1 mg/dL (8.6-10.2); CARBON DIOXIDE 28 mEQ/L (20-30); CHLORIDE 99 mEQ/L (98-107); CREATININE 0.8 mg/dL (0.7-1.2); GLOMERULAR FILTRATION RATE > 60 mL/min (>60); HEMOLYSIS 6; POTASSIUM 4.2 mEQ/L (3.4-4.9); SODIUM 138 mEQ/L (135-145)
--- NOTE | 2017-03-11 15:03 | Infectious Diseases Prog Note ---
Assessment/Plan Problems: (1) Sepsis Assessment & Plan: with negative blood culture, and urine culture grew E coli ESBL + , on ertapenem to treat for 7 days , EOT 03/15/17 (2) UTI (urinary tract infection) Assessment & Plan: due to ESBL + E coli , on ertapenem to treat for 7 days , EOT 03/15/17 (3) Hepatitis Assessment & Plan: hep c ab is positive, will order viral load , recommend treatment as an outpatient with GI . (4) Polysubstance abuse Assessment & Plan: recommend counseling and rehabilitation Subjective Constitutional: Reports: no symptoms HEENT: Reports: no symptoms Respiratory: Reports: no symptoms Breasts: Reports: no symptoms Cardiovascular: Reports: no symptoms Gastrointestinal/Abdominal: Reports: no symptoms Genitourinary: Reports: no symptoms Neurologic: Reports: no symptoms Psychiatric: Reports: no symptoms Skin: Reports: no symptoms Allergies: Coded Allergies: No Known Allergies (Unverified , 03/05/17) Objective Vital Signs Last 24 Hour Vital Signs Date Time Temp Pulse Resp B/P Pulse Ox O2 Delivery O2 Flow Rate FiO2 03/11/17 12:00 97.5 67 18 112/83 96 Room Air 03/11/17 08:21 71 115/77 03/11/17 08:00 97.3 71 20 115/77 96 Room Air 03/11/17 04:00 97.5 63 18 136/77 94 Room Air 03/10/17 22:00 72 150/82 03/10/17 20:52 161/88 03/10/17 20:00 98.2 70 22 157/87 96 Room Air 03/10/17 16:45 97.0 71 19 119/85 98 Room Air Height (Feet): 5 Height (Inches): 10.00 Weight (Pounds): 270 General Appearance: WD/WN, no acute distress HEENT: normocephalic, atraumatic, anicteric, mucous membranes moist Respiratory/Chest: chest wall non-tender, lungs clear, normal breath sounds, no respiratory distress, no accessory muscle use Cardiovascular: normal peripheral pulses, normal rate, regular rhythm, no gallop/murmur Abdomen: normal bowel sounds, soft, non tender, no organomegaly, non distended , no mass Extremities: no cyanosis, no clubbing Skin: no rash, no lesions Laboratory Tests Test 03/11/17 05:35 White Blood Count 3.9 K/UL (4.8-10.8) L Red Blood Count 4.52 M/UL (4.70-6.10) L Hemoglobin 13.8 G/DL (14.2-18.0) L Hematocrit 40.4 % (42.0-52.0) L Mean Corpuscular Volume 89 FL (80-99) Mean Corpuscular Hemoglobin 30.6 PG (27.0-31.0) Mean Corpuscular Hemoglobin Concent 34.3 G/DL (32.0-36.0) Red Cell Distribution Width 12.0 % (11.6-14.8) Platelet Count 106 K/UL (150-450) L Mean Platelet Volume 7.2 FL (6.5-10.1) Neutrophils (%) (Auto) 46.2 % (45.0-75.0) Lymphocytes (%) (Auto) 37.4 % (20.0-45.0) Monocytes (%) (Auto) 12.5 % (1.0-10.0) H Eosinophils (%) (Auto) 3.3 % (0.0-3.0) H Basophils (%) (Auto) 0.6 % (0.0-2.0) Sodium Level 138 mEQ/L (135-145) Potassium Level 4.2 mEQ/L (3.4-4.9) Chloride Level 99 mEQ/L (98-107) Carbon Dioxide Level 28 mEQ/L (20-30) Anion Gap 11 (5-15) Blood Urea Nitrogen 16 mg/dL (7-23) Creatinine 0.8 mg/dL (0.7-1.2) Estimat Glomerular Filtration Rate > 60 mL/min (>60) Glucose Level 225 mg/dL (74-106) H Calcium Level 9.1 mg/dL (8.6-10.2) Hepatitis C Antibody Pending Hepatitis C RNA (PCR) IUs/ml Pending Hepatitis C RNA (PCR) log IUs/ml Pending Current Medications Medications (Trade) Dose Ordered Sig/Javier Route PRN Reason Start Time Stop Time Status Last Admin Dose Admin Acetaminophen (Tylenol) 650 mg Q4H PRN ORAL fever 03/08/17 22:42 04/07/17 22:41 Clonidine HCl (Catapres) 0.1 mg Q6H PRN ORAL SBP > 160 03/08/17 22:43 04/07/17 22:42 03/10/17 20:52 Dextrose (Dextrose 50%) STAT PRN IV Hypoglycemia 03/08/17 22:43 04/07/17 22:42 Ertapenem/Sodium Chloride (INVanz/Sodium Chloride) 55 ml @ 110 mls/hr Q24H IVPB 03/09/17 16:00 03/14/17 15:59 03/10/17 16:00 Gabapentin (Neurontin) 100 mg THREE TIMES A DAY ORAL 03/09/17 09:00 04/08/17 08:59 03/11/17 13:14 Hydrochlorothiazide (Hydrodiuril) 12.5 mg DAILY ORAL 03/09/17 09:00 04/08/17 08:59 03/11/17 08:20 Ibuprofen (Motrin) 600 mg Q8H PRN ORAL For Pain 03/08/17 22:44 04/07/17 22:43 Insulin Aspart (NovoLOG) BEFORE MEALS AND HS SUBQ 03/09/17 06:30 04/08/17 06:29 03/11/17 11:52 Lorazepam (Ativan 2mg/ml 1ml) 1 mg Q4H PRN IV Agitation 03/08/17 22:45 03/15/17 22:44 Metoprolol Succinate (Toprol XL) 50 mg DAILY ORAL 03/09/17 09:00 04/08/17 08:59 03/10/17 09:17 Promethazine HCl/ Codeine (Phenergan with Codeine) 5 ml Q4H PRN ORAL For Cough 03/08/17 22:46 04/07/17 22:45 03/08/17 23:18 Trazodone HCl (Desyrel) 150 mg BEDTIME ORAL 03/09/17 21:00 04/08/17 20:59 03/10/17 20:52 Ernie Jackson M.D. Mar 11, 2017 15:03
[2017-03-11] MEDS: Ertapenem 1 GM in NS 55 ML IVPB SCH (16:20)
[2017-03-11] MEDS: TraZODone 50mg tab ORAL SCH ×2 (20:52→21:24)
--- NOTE | 2017-03-11 22:23 | General Progress Note ---
Assessment/Plan Assessment/Plan ASSESSMENT: #. Leukopenia is likely related to patient's splenomegaly as well as history of hepatitis C, continue to monitor. Also has sepsis #. Thrombocytopenia - related to his hep C as well as liver cirrhosis, Plt now > 100k #. Splenomegaly due to history of chronic hepatitis C, needs followup and rx #. Sepsis. on abx for suspected uti, being followed by ID team #. Urinary tract infection with Gram-negative rods on ceftriaxone #. Hepatitis, chronic hepatitis C. GI followup #. Polysubstance abuse. Recommend counseling and rehabilitation. RECS: - Monitor counts - Hepatitis panel shows HepC - Medications have been reviewed - Plt count has been >50k consistently - Consider transfusion only if hgb <7, plt <20k - Abx as per ID service, consider NEUPOGEN if ANC lower - Peripheral smear ordered and will be reviewed - Appreciate consultation!! Subjective Constitutional: Reports: no symptoms HEENT: Reports: no symptoms Cardiovascular: Reports: no symptoms Respiratory: Reports: no symptoms Gastrointestinal/Abdominal: Reports: no symptoms Genitourinary: Reports: no symptoms Neurologic/Psychiatric: Reports: no symptoms Endocrine: Reports: no symptoms Hematologic/Lymphatic: Reports: no symptoms Allergies: Coded Allergies: No Known Allergies (Unverified , 03/05/17) Subjective stable, no events overnight, no bleeding Objective Last 24 Hour Vital Signs Date Time Temp Pulse Resp B/P Pulse Ox O2 Delivery O2 Flow Rate FiO2 03/11/17 21:11 97.0 69 20 126/81 97 Room Air 03/11/17 20:00 97.0 69 20 126/81 97 Room Air 03/11/17 16:00 97.7 70 20 118/72 95 Room Air 03/11/17 12:00 97.5 67 18 112/83 96 Room Air 03/11/17 08:21 71 115/77 03/11/17 08:00 97.3 71 20 115/77 96 Room Air 03/11/17 04:00 97.5 63 18 136/77 94 Room Air 03/11/17 00:00 97.0 69 20 126/81 97 Room Air 03/11/17 00:00 97.2 69 20 126/81 97 Room Air Intake and Output 03/10/17 03/11/17 19:00 07:00 Intake Total 360 ml 240 ml Output Total 500 ml 1500 ml Balance -140 ml -1260 ml Intake Oral 360 ml 240 ml Output Urine Total 500 ml 1500 ml # Voids 2 2 Laboratory Tests 03/11/17 05:35: White Blood Count 3.9L, Red Blood Count 4.52L, Hemoglobin 13.8L, Hematocrit 40.4L, Mean Corpuscular Volume 89, Mean Corpuscular Hemoglobin 30.6, Mean Corpuscular Hemoglobin Concent 34.3, Red Cell Distribution Width 12.0, Platelet Count 106L, Mean Platelet Volume 7.2, Neutrophils (%) (Auto) 46.2, Lymphocytes ( %) (Auto) 37.4, Monocytes (%) (Auto) 12.5H, Eosinophils (%) (Auto) 3.3H, Basophils (%) (Auto) 0.6, Sodium Level 138, Potassium Level 4.2, Chloride Level 99, Carbon Dioxide Level 28, Anion Gap 11, Blood Urea Nitrogen 16, Creatinine 0.8, Estimat Glomerular Filtration Rate > 60, Glucose Level 225H, Calcium Level 9.1, Hepatitis C Antibody [Pending], Hepatitis C RNA (PCR) IUs/ml [Pending], Hepatitis C RNA (PCR) log IUs/ml [Pending] Height (Feet): 5 Height (Inches): 10.00 Weight (Pounds): 270 General Appearance: no apparent distress EENT: PERRL/EOMI Neck: non-tender Cardiovascular: normal peripheral pulses Respiratory/Chest: chest wall non-tender Abdomen: normal bowel sounds Extremities: normal range of motion Edema: no edema noted Leg (L), no edema noted Leg (R), no edema noted Pedal (L) , no edema noted Pedal (R) 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
[2017-03-12] VITALS: BP 143/76
[2017-03-12 04:56] VITALS: BP 151/82
[2017-03-12] MEDS: NovoLOG Insulin Flexpen SUBQ SCH ×4 (06:38→21:04)
[2017-03-12 08:00] VITALS: BP 134/79
[2017-03-12 11:47] VITALS: BP 147/74
--- NOTE | 2017-03-12 13:33 | General Progress Note ---
Assessment/Plan Status: stable Assessment/Plan ASSESSMENT: #. Leukopenia is likely related to patient's splenomegaly as well as history of hepatitis C, continue to monitor. Also has sepsis #. Thrombocytopenia - related to his hep C as well as liver cirrhosis, Plt now > 100k #. Splenomegaly due to history of chronic hepatitis C, needs followup and rx #. Sepsis. on abx for suspected uti, being followed by ID team #. Urinary tract infection with Gram-negative rods on ceftriaxone #. Hepatitis, chronic hepatitis C. GI followup #. Polysubstance abuse. Recommend counseling and rehabilitation. RECS: - Monitor counts - Hepatitis panel shows HepC - Medications have been reviewed - Plt count has been >50k consistently - Consider transfusion only if hgb <7, plt <20k - Abx as per ID service, consider NEUPOGEN if ANC lower - Peripheral smear ordered and will be reviewed - Appreciate consultation!! Subjective Constitutional: Reports: no symptoms HEENT: Reports: no symptoms Cardiovascular: Reports: no symptoms Respiratory: Reports: no symptoms Gastrointestinal/Abdominal: Reports: no symptoms Genitourinary: Reports: no symptoms Neurologic/Psychiatric: Reports: no symptoms Endocrine: Reports: no symptoms Hematologic/Lymphatic: Reports: no symptoms Allergies: Coded Allergies: No Known Allergies (Unverified , 03/05/17) Subjective pt remains stable, no events overnight, no bleeding, no distress Objective Last 24 Hour Vital Signs Date Time Temp Pulse Resp B/P Pulse Ox O2 Delivery O2 Flow Rate FiO2 03/12/17 11:47 97.5 65 18 147/74 96 Room Air 03/12/17 08:35 81 134/79 03/12/17 08:00 97.8 81 18 134/79 96 Room Air 03/12/17 04:56 97.0 66 20 151/82 95 Room Air 03/12/17 00:00 97.4 73 20 143/76 99 Room Air 03/11/17 21:11 97.0 69 20 126/81 97 Room Air 03/11/17 20:00 97.0 69 20 126/81 97 Room Air 03/11/17 16:00 97.7 70 20 118/72 95 Room Air Intake and Output 03/11/17 03/12/17 19:00 07:00 Intake Total 535 ml 600 ml Output Total 900 ml Balance 535 ml -300 ml Intake Oral 480 ml 600 ml IV Total 55 ml Output Urine Total 900 ml # Voids 3 Height (Feet): 5 Height (Inches): 10.00 Weight (Pounds): 270 General Appearance: WD/WN EENT: PERRL/EOMI Neck: non-tender Cardiovascular: normal peripheral pulses Respiratory/Chest: chest wall non-tender Abdomen: normal bowel sounds Extremities: normal range of motion Edema: no edema noted Leg (L), no edema noted Leg (R), no edema noted Pedal (L) , no edema noted Pedal (R) 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
[2017-03-12 16:00] VITALS: BP 137/84
[2017-03-12] MEDS: Ertapenem 1 GM in NS 55 ML IVPB SCH (16:59)
--- NOTE | 2017-03-12 17:34 | Infectious Diseases Prog Note ---
Assessment/Plan Problems: (1) Sepsis Assessment & Plan: with negative blood culture, and urine culture grew E coli ESBL + , on ertapenem to treat for 7 days , EOT 03/15/17 (2) UTI (urinary tract infection) Assessment & Plan: due to ESBL + E coli , on ertapenem to treat for 7 days , EOT 03/15/17 (3) Hepatitis Assessment & Plan: hep c ab is positive, will order viral load , recommend treatment as an outpatient with GI . (4) Polysubstance abuse Assessment & Plan: recommend counseling and rehabilitation Subjective Constitutional: Reports: no symptoms HEENT: Reports: no symptoms Respiratory: Reports: no symptoms Breasts: Reports: no symptoms Cardiovascular: Reports: no symptoms Gastrointestinal/Abdominal: Reports: no symptoms Genitourinary: Reports: no symptoms Neurologic: Reports: no symptoms Psychiatric: Reports: no symptoms Allergies: Coded Allergies: No Known Allergies (Unverified , 03/05/17) Objective Vital Signs Last 24 Hour Vital Signs Date Time Temp Pulse Resp B/P Pulse Ox O2 Delivery O2 Flow Rate FiO2 03/12/17 11:47 97.5 65 18 147/74 96 Room Air 03/12/17 08:35 81 134/79 03/12/17 08:00 97.8 81 18 134/79 96 Room Air 03/12/17 04:56 97.0 66 20 151/82 95 Room Air 03/12/17 00:00 97.4 73 20 143/76 99 Room Air 03/11/17 21:11 97.0 69 20 126/81 97 Room Air 03/11/17 20:00 97.0 69 20 126/81 97 Room Air Height (Feet): 5 Height (Inches): 10.00 Weight (Pounds): 270 General Appearance: WD/WN, no acute distress HEENT: normocephalic, atraumatic, anicteric, mucous membranes moist, PERRL Respiratory/Chest: chest wall non-tender, lungs clear, normal breath sounds, no respiratory distress Cardiovascular: normal peripheral pulses, normal rate, regular rhythm, no gallop/murmur, no JVD Abdomen: normal bowel sounds, soft, non tender, no organomegaly, non distended , no mass, no scars Extremities: no cyanosis, no clubbing Skin: no rash, no lesions, no ulcers Current Medications Medications (Trade) Dose Ordered Sig/Javier Route PRN Reason Start Time Stop Time Status Last Admin Dose Admin Acetaminophen (Tylenol) 650 mg Q4H PRN ORAL fever 03/08/17 22:42 04/07/17 22:41 Clonidine HCl (Catapres) 0.1 mg Q6H PRN ORAL SBP > 160 03/08/17 22:43 04/07/17 22:42 03/10/17 20:52 Dextrose (Dextrose 50%) STAT PRN IV Hypoglycemia 03/08/17 22:43 04/07/17 22:42 Ertapenem/Sodium Chloride (INVanz/Sodium Chloride) 55 ml @ 110 mls/hr Q24H IVPB 03/09/17 16:00 03/14/17 15:59 03/12/17 16:59 Gabapentin (Neurontin) 100 mg THREE TIMES A DAY ORAL 03/09/17 09:00 04/08/17 08:59 03/12/17 17:05 Hydrochlorothiazide (Hydrodiuril) 12.5 mg DAILY ORAL 03/09/17 09:00 04/08/17 08:59 03/12/17 08:35 Ibuprofen (Motrin) 600 mg Q8H PRN ORAL For Pain 03/08/17 22:44 04/07/17 22:43 Insulin Aspart (NovoLOG) BEFORE MEALS AND HS SUBQ 03/09/17 06:30 04/08/17 06:29 03/12/17 17:03 Lorazepam (Ativan 2mg/ml 1ml) 1 mg Q4H PRN IV Agitation 03/08/17 22:45 03/15/17 22:44 Metoprolol Succinate (Toprol XL) 50 mg DAILY ORAL 03/09/17 09:00 04/08/17 08:59 03/12/17 08:35 Promethazine HCl/ Codeine (Phenergan with Codeine) 5 ml Q4H PRN ORAL For Cough 03/08/17 22:46 04/07/17 22:45 03/08/17 23:18 Trazodone HCl (Desyrel) 150 mg BEDTIME ORAL 03/09/17 21:00 04/08/17 20:59 03/11/17 21:24 Ernie Jackson M.D. Mar 12, 2017 17:34
[2017-03-12 20:42] VITALS: BP 131/63
[2017-03-12] MEDS: TraZODone 50mg tab ORAL SCH (21:10)
[2017-03-13 00:18] VITALS: BP 130/65
[2017-03-13 04:32] VITALS: BP 133/72
[2017-03-13] MEDS: NovoLOG Insulin Flexpen SUBQ SCH ×4 (06:02→21:09)
[2017-03-13 08:00] VITALS: BP 128/77
[2017-03-13] MEDS ORDERED: D5NS 1000ml IV ONE (10:02)
[2017-03-13 12:26] VITALS: BP 136/86
--- NOTE | 2017-03-13 13:26 | Infectious Diseases Prog Note ---
Assessment/Plan Problems: (1) Sepsis Assessment & Plan: with negative blood culture, and urine culture grew E coli ESBL + , on ertapenem to treat for 7 days , EOT 03/15/17 (2) UTI (urinary tract infection) Assessment & Plan: due to ESBL + E coli , on ertapenem to treat for 7 days , EOT 03/15/17 (3) Hepatitis Assessment & Plan: hep c ab is positive, will order viral load , recommend treatment as an outpatient with GI . (4) Polysubstance abuse Assessment & Plan: recommend counseling and rehabilitation Subjective Constitutional: Reports: no symptoms HEENT: Reports: no symptoms Respiratory: Reports: no symptoms Breasts: Reports: no symptoms Cardiovascular: Reports: no symptoms Gastrointestinal/Abdominal: Reports: no symptoms Genitourinary: Reports: no symptoms Neurologic: Reports: no symptoms Psychiatric: Reports: no symptoms Skin: Reports: no symptoms Endocrine: Reports: no symptoms Hematologic: Reports: no symptoms Allergies: Coded Allergies: No Known Allergies (Unverified , 03/05/17) Objective Vital Signs Last 24 Hour Vital Signs Date Time Temp Pulse Resp B/P Pulse Ox O2 Delivery O2 Flow Rate FiO2 03/13/17 12:26 97.4 65 18 136/86 93 Room Air 03/13/17 09:03 66 128/77 03/13/17 08:00 98.1 66 18 128/77 93 Room Air 03/13/17 04:32 98.1 72 19 133/72 97 Room Air 03/13/17 00:18 97.9 75 18 130/65 96 Room Air 03/12/17 20:42 97.5 73 19 131/63 95 Room Air 03/12/17 16:00 97.8 71 20 137/84 94 Room Air Height (Feet): 5 Height (Inches): 10.00 Weight (Pounds): 270 General Appearance: WD/WN, no acute distress HEENT: normocephalic, atraumatic, anicteric, mucous membranes moist Respiratory/Chest: chest wall non-tender, lungs clear, normal breath sounds, no respiratory distress, no accessory muscle use Cardiovascular: normal peripheral pulses, normal rate, regular rhythm, no gallop/murmur Abdomen: normal bowel sounds, soft, non tender, no organomegaly, non distended , no mass Extremities: no cyanosis, no clubbing Skin: no rash, no lesions Current Medications Medications (Trade) Dose Ordered Sig/Javier Route PRN Reason Start Time Stop Time Status Last Admin Dose Admin Acetaminophen (Tylenol) 650 mg Q4H PRN ORAL fever 03/08/17 22:42 04/07/17 22:41 Clonidine HCl (Catapres) 0.1 mg Q6H PRN ORAL SBP > 160 03/08/17 22:43 04/07/17 22:42 03/10/17 20:52 Dextrose (Dextrose 50%) STAT PRN IV Hypoglycemia 03/08/17 22:43 04/07/17 22:42 Ertapenem/Sodium Chloride (INVanz/Sodium Chloride) 55 ml @ 110 mls/hr Q24H IVPB 03/09/17 16:00 03/13/17 23:59 03/12/17 16:59 Gabapentin (Neurontin) 100 mg THREE TIMES A DAY ORAL 03/09/17 09:00 04/08/17 08:59 03/13/17 12:23 Hydrochlorothiazide (Hydrodiuril) 12.5 mg DAILY ORAL 03/09/17 09:00 04/08/17 08:59 03/13/17 09:03 Ibuprofen (Motrin) 600 mg Q8H PRN ORAL For Pain 03/08/17 22:44 04/07/17 22:43 Insulin Aspart (NovoLOG) BEFORE MEALS AND HS SUBQ 03/09/17 06:30 04/08/17 06:29 03/13/17 12:24 Lorazepam (Ativan 2mg/ml 1ml) 1 mg Q4H PRN IV Agitation 03/08/17 22:45 03/15/17 22:44 Metoprolol Succinate (Toprol XL) 50 mg DAILY ORAL 03/09/17 09:00 04/08/17 08:59 03/13/17 09:03 Promethazine HCl/ Codeine (Phenergan with Codeine) 5 ml Q4H PRN ORAL For Cough 03/08/17 22:46 04/07/17 22:45 03/08/17 23:18 Trazodone HCl (Desyrel) 150 mg BEDTIME ORAL 03/09/17 21:00 04/08/17 20:59 03/12/17 21:10 Ernie Jackson M.D. Mar 13, 2017 13:26
--- NOTE | 2017-03-13 13:27 | General Progress Note ---
Assessment/Plan Problem List: (1) Hepatitis ICD Codes: K75.9 - Inflammatory liver disease, unspecified SNOMED: 411667185 (2) Thrombocytopenia ICD Codes: D69.6 - Thrombocytopenia, unspecified SNOMED: 383358868 (3) Sepsis ICD Codes: A41.9 - Sepsis, unspecified organism SNOMED: 53047906 (4) UTI (urinary tract infection) ICD Codes: N39.0 - Urinary tract infection, site not specified SNOMED: 20356989 (5) History of polydrug abuse ICD Codes: Z87.898 - Personal history of other specified conditions SNOMED: 785921461 (6) Fever ICD Codes: R50.9 - Fever, unspecified SNOMED: 254711275 (7) Psychiatric disorder ICD Codes: F99 - Mental disorder, not otherwise specified SNOMED: 25894590, 526321456 Assessment/Plan Monitor counts Abx perID Hematology consult - Dr Wells Monitor lytes - correct as needed Obtain list of psyche meds Monitor I&O Monitor temp Subjective Allergies: Coded Allergies: No Known Allergies (Unverified , 03/05/17) Subjective In bed, in no apparent distress, denies discomfort Objective Last 24 Hour Vital Signs Date Time Temp Pulse Resp B/P Pulse Ox O2 Delivery O2 Flow Rate FiO2 03/13/17 12:26 97.4 65 18 136/86 93 Room Air 03/13/17 09:03 66 128/77 03/13/17 08:00 98.1 66 18 128/77 93 Room Air 03/13/17 04:32 98.1 72 19 133/72 97 Room Air 03/13/17 00:18 97.9 75 18 130/65 96 Room Air 03/12/17 20:42 97.5 73 19 131/63 95 Room Air 03/12/17 16:00 97.8 71 20 137/84 94 Room Air Intake and Output 03/12/17 03/13/17 19:00 07:00 Intake Total 775 ml 500 ml Output Total 400 ml Balance 775 ml 100 ml Intake Oral 720 ml 500 ml IV Total 55 ml Output Urine Total 400 ml # Voids 4 2 Height (Feet): 5 Height (Inches): 10.00 Weight (Pounds): 270 Aggie Elias NLinaPLina Mar 13, 2017 13:27
--- NOTE | 2017-03-13 13:47 | Nephrology Progress Note ---
Assessment/Plan Problem List: (1) Sepsis (2) UTI (urinary tract infection) (3) HIV (human immunodeficiency virus infection) (4) Hepatitis (5) Polysubstance abuse (6) Thrombocytopenia Plan Monitor counts Abx perID Hematologyf/u Monitor lytes - correct as needed Monitor I&O Monitor temp AM labs Subjective Constitutional: Denies: chills, diaphoresis, fever, malaise, no symptoms, other , weakness HEENT: Denies: blurred vision, double vision, ear discharge, ear pain, eye pain , mouth pain, mouth swelling, no symptoms, nose congestion, nose pain, other, tearing, throat pain, throat swelling Genitourinary: Denies: burning, discharge, flank pain, frequency, hematuria, incontinence, no symptoms, other, pain, urgency Neurologic/Psychiatric: Denies: anxiety, depressed, emotional problems, headache, no symptoms, numbness, other, paresthesia, pre-existing deficit, seizure, tingling, tremors, weakness Subjective Note for 03/12/17 Objective Objective Last 24 Hour Vital Signs Date Time Temp Pulse Resp B/P Pulse Ox O2 Delivery O2 Flow Rate FiO2 03/13/17 12:26 97.4 65 18 136/86 93 Room Air 03/13/17 09:03 66 128/77 03/13/17 08:00 98.1 66 18 128/77 93 Room Air 03/13/17 04:32 98.1 72 19 133/72 97 Room Air 03/13/17 00:18 97.9 75 18 130/65 96 Room Air 03/12/17 20:42 97.5 73 19 131/63 95 Room Air 03/12/17 16:00 97.8 71 20 137/84 94 Room Air Intake and Output 03/12/17 03/13/17 19:00 07:00 Intake Total 775 ml 500 ml Output Total 400 ml Balance 775 ml 100 ml Intake Oral 720 ml 500 ml IV Total 55 ml Output Urine Total 400 ml # Voids 4 2 Height (Feet): 5 Height (Inches): 10.00 Weight (Pounds): 270 General Appearance: no apparent distress EENT: normal ENT inspection Neck: normal alignment, supple, normal inspection Cardiovascular: normal rate, regular rhythm, no JVD Respiratory/Chest: normal breath sounds, no respiratory distress Abdomen: non tender, soft, no organomegaly, no mass Extremities: non-tender, normal inspection, no calf tenderness, normal capillary refill Neurologic: alert, oriented x 3, responsive, normal mood/affect MILADIS ROMERO Mar 13, 2017 13:47
[2017-03-13 16:00] VITALS: BP 140/86
[2017-03-13] MEDS: Ertapenem 1 GM in NS 55 ML IVPB SCH (16:16)
--- NOTE | 2017-03-13 17:32 | General Progress Note ---
Assessment/Plan Assessment/Plan ASSESSMENT: #. Leukopenia is likely related to patient's splenomegaly as well as history of hepatitis C, continue to monitor. Also has sepsis #. Thrombocytopenia - related to his hep C as well as liver cirrhosis, Plt now > 100k #. Splenomegaly due to history of chronic hepatitis C, needs followup and rx #. Sepsis. on abx for uti, being followed by ID team #. Urinary tract infection with ESBL on ertapenem #. Hepatitis, chronic hepatitis C. GI followup #. Polysubstance abuse. Recommend counseling and rehabilitation. RECS: - Monitor counts - Hepatitis panel shows HepC+ - Medications have been reviewed - Plt count has been >50k consistently - Consider transfusion only if hgb <7, plt <20k - Abx as per ID service, consider NEUPOGEN if ANC lower - Peripheral smear ordered and will be reviewed - Appreciate consultation!! Subjective Constitutional: Reports: no symptoms HEENT: Reports: no symptoms Cardiovascular: Reports: no symptoms Respiratory: Reports: no symptoms Gastrointestinal/Abdominal: Reports: no symptoms Genitourinary: Reports: no symptoms Neurologic/Psychiatric: Reports: no symptoms Endocrine: Reports: no symptoms Hematologic/Lymphatic: Reports: no symptoms Allergies: Coded Allergies: No Known Allergies (Unverified , 03/05/17) Subjective pt not bleeding, in no distress Objective Last 24 Hour Vital Signs Date Time Temp Pulse Resp B/P Pulse Ox O2 Delivery O2 Flow Rate FiO2 03/13/17 12:26 97.4 65 18 136/86 93 Room Air 03/13/17 09:03 66 128/77 03/13/17 08:00 98.1 66 18 128/77 93 Room Air 03/13/17 04:32 98.1 72 19 133/72 97 Room Air 03/13/17 00:18 97.9 75 18 130/65 96 Room Air 03/12/17 20:42 97.5 73 19 131/63 95 Room Air Intake and Output 03/12/17 03/13/17 19:00 07:00 Intake Total 775 ml 500 ml Output Total 400 ml Balance 775 ml 100 ml Intake Oral 720 ml 500 ml IV Total 55 ml Output Urine Total 400 ml # Voids 4 2 Height (Feet): 5 Height (Inches): 10.00 Weight (Pounds): 270 General Appearance: WD/WN, no apparent distress EENT: PERRL/EOMI Neck: non-tender Cardiovascular: normal peripheral pulses Respiratory/Chest: chest wall non-tender Abdomen: normal bowel sounds Extremities: normal range of motion Edema: no edema noted Leg (L), no edema noted Leg (R), no edema noted Pedal (L) , no edema noted Pedal (R) Neurologic: oriented x 3, normal mood/affect Skin: normal pigmentation, warm/dry GABBY OJEDA Mar 13, 2017 17:32
[2017-03-13 20:00] VITALS: BP 139/89
[2017-03-13] MEDS: TraZODone 50mg tab ORAL SCH (21:09)
[2017-03-14] VITALS: BP 137/72
[2017-03-14 04:00] VITALS: BP 128/79
[2017-03-14] MEDS: NovoLOG Insulin Flexpen SUBQ SCH ×3 (06:29→16:47)
[2017-03-14 07:14] LABS: BASOPHILS % (AUTO) 0.5 % (0.0-2.0); EOSINOPHILS % (AUTO) 2.9 % (0.0-3.0); LYMPHOCYTES % (AUTO) 37.1 % (20.0-45.0); MEAN CORPUSCULAR HEMOGLOBIN 31.2 PG (27.0-31.0); MEAN CORPUSCULAR VOLUME 89 FL (80-99); MEAN PLATELET VOLUME 7.1 FL (6.5-10.1); MONOCYTES % (AUTO) 8.9 % (1.0-10.0); NEUTROPHILS % (AUTO) 50.6 % (45.0-75.0); PLATELET COUNT 141 K/UL (150-450); RED BLOOD COUNT 4.49 M/UL (4.70-6.10); RED CELL DISTRIBUTION WIDTH 12.1 % (11.6-14.8); WHITE BLOOD COUNT 4.8 K/UL (4.8-10.8)
[2017-03-14 07:33] LABS: ANION GAP 14 (5-15); CALCIUM 9.4 mg/dL (8.6-10.2); CARBON DIOXIDE 26 mEQ/L (20-30); CHLORIDE 95 mEQ/L (98-107); CREATININE 0.8 mg/dL (0.7-1.2); GLOMERULAR FILTRATION RATE > 60 mL/min (>60); HEMOLYSIS 8; SODIUM 135 mEQ/L (135-145)
[2017-03-14 07:45] VITALS: BP 100/61
[2017-03-14 12:00] VITALS: BP 133/65
--- NOTE | 2017-03-14 13:18 | General Progress Note ---
Assessment/Plan Assessment/Plan ASSESSMENT: #. Leukopenia is likely related to patient's splenomegaly as well as history of hepatitis C, has now resolved. Also has sepsis #. Thrombocytopenia - related to his hep C as well as liver cirrhosis, Plt now > 100k #. Splenomegaly due to history of chronic hepatitis C, needs followup and rx #. Sepsis. on abx for uti, being followed by ID team #. Urinary tract infection with ESBL on ertapenem #. Hepatitis, chronic hepatitis C. GI followup #. Polysubstance abuse. Recommend counseling and rehabilitation. RECS: - Monitor counts - Hepatitis panel shows HepC+ - Medications have been reviewed - Plt count has been >50k consistently - Consider transfusion only if hgb <7, plt <20k - Abx as per ID service, consider NEUPOGEN if ANC lower - Peripheral smear ordered and will be reviewed - Appreciate consultation!! Subjective ROS Limited/Unobtainable: Yes Constitutional: Reports: no symptoms HEENT: Reports: no symptoms Cardiovascular: Reports: no symptoms Respiratory: Reports: no symptoms Gastrointestinal/Abdominal: Reports: no symptoms Genitourinary: Reports: no symptoms Neurologic/Psychiatric: Reports: no symptoms Endocrine: Reports: no symptoms Hematologic/Lymphatic: Reports: no symptoms Allergies: Coded Allergies: No Known Allergies (Unverified , 03/05/17) Subjective pt remains stable,no bleeding, no distress Objective Last 24 Hour Vital Signs Date Time Temp Pulse Resp B/P Pulse Ox O2 Delivery O2 Flow Rate FiO2 03/14/17 12:00 98.5 75 18 133/65 96 Room Air 03/14/17 08:52 68 113/74 03/14/17 07:45 97.0 81 20 100/61 97 Room Air 03/14/17 04:00 97.9 66 18 128/79 98 Room Air 03/14/17 00:00 97.2 60 18 137/72 95 Room Air 03/13/17 20:00 98.1 69 20 139/89 95 Room Air 03/13/17 16:00 98.1 60 18 140/86 93 Room Air Intake and Output 03/13/17 03/14/17 19:00 07:00 Intake Total 55 ml 1360 ml Output Total 800 ml Balance 55 ml 560 ml Intake Oral 1360 ml IV Total 55 ml Output Urine Total 800 ml Laboratory Tests 03/14/17 05:25: White Blood Count 4.8, Red Blood Count 4.49L, Hemoglobin 14.0L, Hematocrit 40.1L , Mean Corpuscular Volume 89, Mean Corpuscular Hemoglobin 31.2H, Mean Corpuscular Hemoglobin Concent 35.0, Red Cell Distribution Width 12.1, Platelet Count 141L, Mean Platelet Volume 7.1, Neutrophils (%) (Auto) 50.6, Lymphocytes ( %) (Auto) 37.1, Monocytes (%) (Auto) 8.9, Eosinophils (%) (Auto) 2.9, Basophils (%) (Auto) 0.5, Sodium Level 135, Potassium Level 4.0, Chloride Level 95L, Carbon Dioxide Level 26, Anion Gap 14, Blood Urea Nitrogen 19, Creatinine 0.8, Estimat Glomerular Filtration Rate > 60, Glucose Level 221H, Calcium Level 9.4 Height (Feet): 5 Height (Inches): 10.00 Weight (Pounds): 270 General Appearance: WD/WN EENT: PERRL/EOMI Neck: non-tender Cardiovascular: normal peripheral pulses Respiratory/Chest: chest wall non-tender Abdomen: normal bowel sounds Extremities: normal range of motion Edema: no edema noted Leg (L), no edema noted Leg (R), no edema noted Pedal (L) , no edema noted Pedal (R) Neurologic: head of stock II-XII grossly normal Skin: warm/dry Jose Wells Mar 14, 2017 13:18
[2017-03-14 16:07] VITALS: BP 121/79
[2017-03-14] MEDS ORDERED: Ertapenem 1 GM in NS 55 ML IVPB ONE (17:00)
[2017-03-15 21:11] LABS: HEP C VIRUS RNA (LOG IU/ML) 6.879 (.); HEPATITIS C QUANT 7564370 IU/mL (.)
--- NOTE | 2017-03-16 08:00 | Discharge Summary ---
Discharge Summary Hospital Course Date of Admission Mar 05, 2017 at 14:23 Date of Discharge Mar 14, 2017 at 19:12 Admitting Diagnosis SEPSIS,acs HPI Hi Cunha is a 61 year old male who was admitted on Mar 05, 2017 at 14:23 for Sepsis,Acute Coronary Syndrome Hospital Course dc summary #[id number] Discharge Medications Continued Medications: Gabapentin* (Gabapentin*) 100 Mg Capsule Unknown Dose ORAL THREE TIMES A DAY, CAP Hydrochlorothiazide* (Hydrochlorothiazide*) 12.5 Mg Capsule Unknown Dose ORAL DAILY, CAP Metoprolol Succinate* (Metoprolol Succinate*) 25 Mg Tab.er.24h Unknown Dose ORAL DAILY, TAB Oxybutynin (Oxytrol) 1 Each Patch.tdsw 1 EACH TD, PATCH Trazodone* (Trazodone*) 150 Mg Tablet 150 MG ORAL BEDTIME, TAB Discharge Condition Upon Discharge: stable Discharge Disposition Patient was discharged to Home (01) Discharge Diagnoses: Discharge Instructions Discharge Instructions Special Instructions I have been assigned to complete a D/C Summary on this account. I was not involved in the patient management Padmaja Sosa NP (Vanchtein) Mar 16, 2017 07:59
--- NOTE | 2017-03-16 09:58 | Discharge Summary 2 SIG ---
DATE OF ADMISSION: 03/05/2017 DATE OF DISCHARGE: 03/14/2017 REASON FOR ADMISSION: 61-year-old male was brought by paramedics with complaints of urinary frequency. The patient with a history of hepatitis C , HIV, and hypertension. The patient denied chest pain or shortness of breath. Denied flank pain or abdominal pain, but reported increased frequency of urination and burning. Workup in the emergency room revealed that the patient was febrile with fever 101.7, tachycardic, leukopenic, white blood count 4.2. Urinalysis with evidence of UTI and urine toxicology screen was positive for opiates and amphetamines. CT of the abdomen and pelvis showed questionable dilated loop of bowel. However , abdomen was soft, nontender, nondistended; essentially normal abdominal exam, patient was passing gas and had stool. No vomiting, thus there was low suspicion for small bowel obstruction , possibly findinbgs consistent with ileus. Troponin was negative. EKG showed normal sinus rhythm. No ischemic changes. 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 The patient admitted for further management. ADMITTING DIAGNOSES: 1. Sepsis. 2. Urinary tract infection. 3. Human immunodeficiency virus status. HOSPITAL STAY: The patient admitted. The patient started on empiric antibiotics. ID consult was requested. Urine culture positive for E coli ESBL. Blood culture negative. The patient was on ertapenem as per ID recommendation. Hepatitis panel revealed positive hepatitis C antibody. Viral load high. Recommended outpatient treatment for hepatitis C. Shipping Packer followed the patient in lieu of leukopenia and thrombocytopenia. Platelet counts trending up and according to hose suspender cutter, thrombocytopenia likely secondary to hepatitis C, liver cirrhosis, platelet count up to 141 from initial 77 on discharge. Leukopenia resolved. The lowest WBC -2.4, upon discharge- 4.8. Leukopenia related to splenomegaly, hepatitis C as well as sepsis as per hose suspender cutter. The patient was able to tolerate diet . Had bowel movements. Urinary symptoms resolved. No fever. Blood pressure was managed with beta-elvira and diuretic. Blood sugar was managed with sliding scale of insulin as needed. The patient was stable for discharge. DISCHARGE DIAGNOSES: 1. Sepsis. 2. Urinary tract infection/ E. coli extended-spectrum beta-lactamase. 3. Human immunodeficiency virus status. 4. Diabetes 5. Hypertension . 6. Thrombocytopenia. 7. Leukopenia. 8. Polysubstance abuse. 9. Hepatitis C. Giovanny Prince M.D. I have been assigned to dictate discharge summary on this account and I was not involved in the patient's management. Padmaja [facility] NLinaPLina DR: Nate JOB#: [id number] CC: RIANNA
== END 2017-03-14 19:12 | disposition home or self-care (01) | DRG 720 ==
LOC: EDBD 12:22 → EMR 12:47 → EDBEDREQ 12:52 → 2E 14:23 → EDBEDREQ 15:16 → 2E 03-07 17:24 → 4W 03-08 22:25
DX: A41.9 Sepsis, unspecified organism (principal); N39.0 Urinary tract infection, site not specified; E66.01 Morbid (severe) obesity due to excess calories; I10 Essential (primary) hypertension; E11.9 Type 2 diabetes mellitus without complications; B96.20 Unspecified Escherichia coli [E. coli] as the cause of diseases classified elsewhere; B19.20 Unspecified viral hepatitis C without hepatic coma; D47.3 Essential (hemorrhagic) thrombocythemia; Z68.38 Body mass index [BMI] 38.0-38.9, adult; F31.9 Bipolar disorder, unspecified; R16.1 Splenomegaly, not elsewhere classified; Z16.12 Extended spectrum beta lactamase (ESBL) resistance; F19.10 Other psychoactive substance abuse, uncomplicated
CPT/HCPCS: 36415; 71010; 71275; 72191; 74175; 80048; 80053; 80300; 81003; 82308; 82550; 82553; 82962; 83605; 83690; 83735; 83880; 84100; 84484; 85007; 85025; 85610; 85730; 86705; 86708; 86803; 87040; 87081; 87086; 87181; 87340; 87517; 87522; 93005; J1815